=== PATIENT | female | born 1950 | race Caucasian/White ===

== ENCOUNTER → 2023-12-11 10:26 | Outpatient (REF) | payer MEDICARE, SELFPAY | LOC: PAVMRI 10:26 | PROVIDERS: ATTENDING PHYSICIAN Ophthalmology; FAMILY PHYSICIAN Family Medicine | DX: H47.20 Unspecified optic atrophy (principal) | CPT/HCPCS: 70360; 70543; 71046; A9575 ==

== ENCOUNTER 2023-12-21 18:46 | Inpatient (IN) | payer MEDICARE, SELFPAY ==
[2023-12-21] VITALS (9 sets, daily range): BP systolic 118–142; BP diastolic 51–84; BMI 33.4
[2023-12-21 16:21] LABS: % Basophils 0.4 % (0-2); % Eosinophils 0.9 % (0-6); % Immature Granulocytes 0.9 % (0-0.5); % Lymphocytes 21.3 % (20.5-51.1); % Monocytes 4.4 % (1.7-9.3); % Neutrophils 72.1 % (42.2-75.2); Absolute Eosinophils 0.1 10^3/uL (0-0.7); Absolute Immature Granulocytes 0.1 10^3/uL (0-0.05); Absolute Lymphocytes 2.3 10^3/uL (1.2-3.4); Absolute Monocytes 0.5 10^3/uL (0.1-0.6); Absolute Neutrophils 7.8 10^3/uL (1.4-6.5); Hematocrit 46.4 % (37.0-47.0); Hemoglobin 15.7 g/dL (12.0-16.0); Mean Corp Hgb Conc. 33.8 g/dL (33.0-37.0); Mean Corpuscular Hgb 29.6 pg (27.0-31.0); Mean Corpuscular Volume 87.5 fL (81.0-99.0); Mean Platelet Volume 9.1 fL (7.4-10.4); Nucleated Red Blood Cells % 0 %; Platelet Count 393 10^3/uL (130-400); Red Cell Dist. Width 14.4 % (11.5-14.5); White Blood Cell Count 10.8 10^3/uL (4.8-10.8)
[2023-12-21 16:41] LABS: Blood Urea Nitrogen 19 mg/dl (7-17); Calcium 9.1 mg/dl (8.4-10.2); Carbon Dioxide 20 mmol/L (22-30); Chloride 108 mmol/L (98-107); Creatine Phosphokinase 92 U/L (30-135); Glucose 110 mg/dl (70-99); Sodium 139 mmol/L (135-145); eGFR > 60.00
--- NOTE | 2023-12-21 17:11 | ED.MUSCINJ ---
HPI-Injury
General
Chief Complaint: Fall
Source: patient
Exam Limitations: none
Time Seen by Provider: 12/21/23 16:07
Travel History
Have you had any contact with someone who has COVID-19?: No
Do you have any symptoms of coronavirus? Fever > 100 degrees, chills, cough, shortness of breath, sore throat, loss of taste or smell, muscle aches, or headache?: No
History of Present Illness-Injury
Initial Injury comments:
73 year old female presents complaining of left hip pain starting this morning after a fall. She admits to drinking too much wine last evening and fell this morning. She is on Eliquis, last dose was yesterday morning. She is not sure if she hit
her head. She has no other complaints at this time
Past History
Past History
ED Past Medical History: Arrthythmia (A fib), GERD and HTN
ED Past Surgical History: Cardiac (2 ablations)
Phy Exam
Physical Exam
Physical Exam:
General: Well-appearing female no acute respiratory distress
HEENT: Normocephalic small contusion noted to the left superior eyelid
Heart: Regular rate and rhythm no murmurs
Lungs: Clear to auscultation
Musculoskeletal exam: Left leg slightly externally rotated and shortened tender about the left proximal thigh spine is nontender
Injury Course
Orders/Labs/Results
Orders:
Orders
12/21/23 16:15
Add On- LAB Urgent
Tests Added?: cpk
Alcohol Urgent
Basic Metabolic Panel Urgent
Complete Blood Count/With Diff Urgent
Creatine Phosphokinase Urgent
CR Femur - Left Min 2 Vw Urgent
Comment:
Reason For Exam: fall
CR Pelvis - 1 Or 2 Views Urgent
Comment:
Reason For Exam: fall
12/21/23 16:16
CT Head W/o Iv Contrast Urgent
Comment:
Reason For Exam: fall
12/21/23 16:54
Add On- LAB Urgent
Tests Added?: alcohol
Abnormal Lab Results
12/21/23
16:15
Abs Immat Gran (auto) 0.1 H 10^3/uL
(0-0.05)
Absolute Neuts (auto) 7.8 H 10^3/uL
(1.4-6.5)
Immature Gran % 0.9 H %
(0-0.5)
Chloride 108 H mmol/L
(98-107)
Carbon Dioxide 20 L mmol/L
(22-30)
BUN 19 H mg/dl
(7-17)
Creatinine 0.5 L mg/dL
(0.6-1.0)
Glucose 110 H mg/dl
(70-99)
12/21/23 16:15
12/21/23 16:15
MDM/Problems Addressed
Differential Diagnosis Includes:
Fall after wine. Probable intoxication. Will obtain CT of head x-rays of left femur and pelvis. Labs pending
*Critical Care Note
Total Time (30-74mins, 75-104mins- exclusive of procedures): Not Applicable
ED Attending Note
-
Portions of this chart may have been created with voice recognition software.� Occasional wrong word or��sound alike� substitutions may have occurred due to the inherent limitations of voice recognition software.
Discharge Plan
Departure
Patient Disposition: Admit
Date of Disposition: 12/21/23
Time of Disposition: 17:16
Admit to: Med/Surg
Presentation/result/management discussed w/ accepting MD/DO: Hospitalist
Discharge Problem:
Closed fracture of left hip
Prescriptions:
No Action
atorvastatin 10 mg Tablet
10 mg PO QPM
lamotrigine [Lamictal] 25 mg Tablet
50 mg PO BID
lorazepam 2 mg Tablet
2 mg PO BIDPRN PRN (Reason: anxiety)
oxybutynin chloride 5 mg Tablet
5 mg PO BID
losartan 100 mg Tablet
100 mg PO DAILY
aripiprazole 5 mg Tablet
5 mg PO DAILY
duloxetine 60 mg Capsule,Delayed Release(Dr/Ec)
120 mg PO DAILY
acetaminophen [Tylenol] 325 mg Tablet
650 mg PO Q4H PRN (Reason: mild pain or headache)
therapeutic multivitamin Tablet
1 tab PO DAILY
cyanocobalamin (vitamin B-12) [Vitamin B-12] 500 mcg Tablet
500 mcg PO DAILY
ascorbic acid (vitamin C) [Vitamin C] 500 mg Tablet
500 mg PO DAILY
buspirone 30 mg Tablet
30 mg PO BID
aspirin 81 mg Tablet,Chewable
81 mg PO DAILY
vitamin B complex Tablet
1 tab PO DAILY
colestipol 1 gram tablet
4 g PO DAILY
omeprazole 40 mg Capsule,Delayed Release(Dr/Ec)
40 mg PO DAILY
thiamine HCl (vitamin B1) 100 mg Tablet
100 mg PO BID Qty: 60 0RF
amlodipine [Norvasc] 10 mg tablet
10 mg PO DAILY Qty: 30 0RF
folic acid 1 mg tablet
1 mg PO DAILY Qty: 30 0RF
Referrals:
Alka Castro DO [Family Provider] -
Interventions
Interventions:
*Risk Screen - Suicide Last Done: 12/21/23 15:50
*General Assessment Last Done: 12/21/23 15:50
*Neglect/Abuse Screening Last Done: 12/21/23 15:50
*ED COVID-19 Vaccine History Last Done: 12/21/23 15:49
ED-Musculoskeletal Assessment Last Done: 12/21/23 15:52
ED- Neurological Assessment Last Done: 12/21/23 15:52
ED-Skin Assessment Last Done: 12/21/23 15:52
[2023-12-21 17:16] LABS: Alcohol 298 mg/dl
--- NOTE | 2023-12-21 17:18 | HPS.HSE ---
Addendum entered and electronically signed by Sreekanth Doss MD 12/21/23 18:22:
I saw and examined the patient.
The SENIOR LANDSCAPE ARCHITECT or PA's note was reviewed and I agree with the note.
Comment: History as outlined and discussed with SENIOR LANDSCAPE ARCHITECT
Patient on exam still has some alcohol on her breath and still seems a little any braided with some slurring of her speech does not recall much events yesterday when she may have been on the floor for some time and now has incurred a
intertrochanteric fracture of her left femur with some comminution. From pain and inability to weight-bear. Her medical history more recently exhibits paroxysmal atrial fibrillation for which she had cardioversion some weeks ago and seem to be an
successful as the patient presently in sinus rhythm she remains on metoprolol 50 mg twice a day and was started on Eliquis at that time she suffers long-term from a prior history of traumatic brain injury with more recently noting diminishing acuity
in her right eye and felt to be in relation to ongoing encephalomalacia from her traumatic brain injury was noted on more recent MRI and end of November of this year.
On her exam pertinent findings showed some bruising to the left eyelid but no significant signs of fluctuance or pain to the orbit and no significant acuity change. CT of the head was unremarkable with the exception of noting prior encephalomalacia
MRI did show atrophy above and beyond what would be expected in a 73-year-old.
Review of chemistries notes a bicarb of 21/with a gap of 14/CK was not elevated at 92/minor elevation in LFTs possibly alcohol intake related.
She is on multiple medications that could have aggravated her situation as far as her inebriation including lorazepam buspirone Abilify lamotrigine and Cymbalta/she admits to alcohol excess at times in her history but admits this was a isolated
episode in relation to the democrat that she had night and Saturday.
Comminuted intertrochanteric left hip fracture
-Will require surgical intervention but will also require washout for apixaban which she last took Saturday morning/period of 3 days earliest of the surgical intervention would be Saturday
-Nonetheless follow a alcohol withdrawal protocol
-Resume medication profile make sure she received a dosage of metoprolol on operative date
-Withhold further apixaban
-Analgesia with Dilaudid
-Resume duloxetine, lamotrigine, Abilify, but probably hold her prior dosing of lorazepam unless has significant withdrawal symptoms/but was on also fairly high dosages of 2 mg twice daily taking as as needed
-Based on Sapp perioperative risk profile 0.34% estimated risk probability of [place] or cardiac arrest /after washout of apixaban
Essential hypertension
-Continue losartan and metoprolol
Paroxysmal atrial fibrillation/status post cardioversion and presents in sinus rhythm
-Continue beta-blockade perioperatively
-Will hold apixaban
Rest of comorbidities as outlined by SENIOR LANDSCAPE ARCHITECT and agreed and discussed/DNR/DNI
Original Note:
Family Physician
-
Family Physician: Alka Castro
Chief Complaint
-
fall
History of Present Illness
73 year old female with past medical history for traumatic brain injury, paroxysmal A-fib, hide GERD, hypertension, diverticulitis, presented to us with left hip pain. Patient is from [facility]. They had a democrat on night at the
[employer]. She took leftover wine to her apartment. she drank one and half bottle wine overnight. patient does not remember how and when she fell. she thinks, she fell sometime yesterday. today the [facility]elia saw her through her glass sliding door and
helped her. presents complaining of left hip pain. She is on Eliquis, last dose was yesterday morning.� She is not sure if she hit her head. Patient denied headache, dizziness, syncopal episode. Patient denied fever, chills, chest pain, short of
breath. Patient denied abdominal pain, nausea, vomiting, diarrhea. Patient denied dysuria hematuria.
stated she has not been drinking for long time. her last drink was few months ago.
X-ray with left hip fracture. Admitting for further management
Medical History
Past Medical History
Past Medical History: Reports Other
Additional Past Medical History:
atrial fib
htn
HLD
depression, anxiety
migraine
Diverticulosis/diverticulitis
Obstructive sleep apnea
Past Surgical History: Reports Other
Additional Past Surgical History:
cardiac ablation
Appendectomy
Bowel resection
Bilateral knee replacement
Right shoulder surgery
Social History
Tobacco: Former Smoker
Alcohol: Occasional
Drug: None
Personal: Single
Living: Alone
Family History
Family History: Not pertinent
Allergies / Home Medications
Allergies reflects when Allergies were last updated in [facility].
Home Medications with original date entered in [facility]
Allergy/Medication List:
Allergies
Allergy/AdvReac Type Severity Reaction Status Date / Time
etomidate Allergy Unknown Verified 05/04/23 12:39
topiramate [From Topamax] Allergy Unknown Verified 05/04/23 12:39
Home Medications
aripiprazole 5 mg tablet 5 mg PO DAILY Neurological Condition 05/07/22
atorvastatin 10 mg tablet 10 mg PO QPM High cholesterol 05/07/22
duloxetine 60 mg capsule,delayed release 120 mg PO DAILY Mental Health 05/07/22
lamotrigine 25 mg tablet (Lamictal) 50 mg PO BID Neurological Condition 05/07/22
lorazepam 2 mg tablet 2 mg PO BIDPRN PRN anxiety 05/07/22
losartan 100 mg tablet 100 mg PO DAILY Blood pressure 05/07/22
oxybutynin chloride 5 mg tablet 5 mg PO BID Urinary issue 05/07/22
acetaminophen 325 mg tablet (Tylenol) 650 mg PO Q4H PRN mild pain or headache 08/31/22
ascorbic acid (vitamin C) 500 mg tablet (Vitamin C) 500 mg PO DAILY Supplement 08/31/22
aspirin 81 mg chewable tablet 81 mg PO DAILY Blood clot prevention/tx 08/31/22
buspirone 30 mg tablet 30 mg PO BID Mental Health 08/31/22
colestipol 1 gram tablet 4 g PO DAILY Gastrointestinal issue 08/31/22
cyanocobalamin (vitamin B-12) 500 mcg tablet (Vitamin B-12) 500 mcg PO DAILY Supplement 08/31/22
therapeutic multivitamin 1 tab PO DAILY Supplement 08/31/22
vitamin B complex 1 tab PO DAILY Supplement 08/31/22
omeprazole 40 mg capsule,delayed release 40 mg PO DAILY Gastrointestinal Issue 05/04/23
amlodipine 10 mg tablet (Norvasc) 10 mg PO DAILY #30 tabs 05/06/23
folic acid 1 mg tablet 1 mg PO DAILY #30 tabs 05/06/23
thiamine HCl (vitamin B1) 100 mg tablet 100 mg PO BID #60 tabs 05/06/23
Review of Systems
-
Constitutional: Reports No Symptoms
EENT: Reports No Symptoms
Respiratory: Reports No Symptoms
Cardiac: Reports No Symptoms
Abdomen/GI: Reports No Symptoms
: Reports No Symptoms
Musculoskeletal: Reports Other (left hip pain)
Skin: Reports No Symptoms
Neurological: Reports No Symptoms
Endocrine: Reports No Symptoms
Hematologic/Lymphatic: Reports No Symptoms
Psych: Reports No Symptoms
Physical Exam
Vital Signs
Vital Signs
Temp Pulse Resp BP Pulse Ox
97.5 F 59 16 123/62 95
12/21/23 15:47 12/21/23 15:47 12/21/23 15:47 12/21/23 15:47 12/21/23 15:47
Physical Exam
General: Well Developed, Well Nourished and No Apparent Distress
HEENT: NormoCephalic, Moist mucous membranes and Atraumatic
Respiratory: Clear
Cardiac: S1/S2 and Regular Rhythm; No Murmur or Rub
GI: Soft, Non Tender, Non Distended and Normal Bowel Sounds; No Organomegaly
Rectal: Deferred by Provider
Musculoskeletal: No Clubbing, No Cyanosis and Other ( Left leg slightly externally rotated and shortened tender about the left proximal thigh spine is nontender)
Skin: No Rash
Neuro: AO x 3 and Nonfocal/grossly intact
Psych: Calm
Laboratory Results
-
12/21/23 16:15
12/21/23 16:15
Laboratory Results
Total Bilirubin Cancelled 12/21/23 16:15
AST Cancelled 12/21/23 16:15
ALT Cancelled 12/21/23 16:15
Alkaline Phosphatase Cancelled 12/21/23 16:15
Data Reviewed
-
Diagnostic Radiology: Report Reviewed by me
Lab Data: Labs Reviewed by me
Impression/Plan
-
#fell/left intertrochanteric hip fracture
-head CT with no acute findings
-pelvis/femur x ray There is a comminuted left proximal femoral intertrochanteric fracture with foreshortening and varus angulation. The femoral head remains situated within the acetabulum. No periacetabular iliac fracture.
-orthopedics consulted
-Dilaudid prn for pain
-PT/OT after surgical intervention
#Essential hypertension
Continue losartan
#Depression
-continue Abilify/duloxetine/buspirone, on Lamictal for migraines
#Paroxysmal Afib
-EKG pending
-eliquis hold
-Metoprolol continued
#h/o GIN, s/p stimulator device, oxygen HS PRN
# Hyperlipidemia
-Statin
# GERD
-Prilosec continued
#hxt of TBI
# SCD
# DNR
[2023-12-21 17:42] LABS: INR 1.01; PT 13.1 Sec (11.4-14.6)
[2023-12-21 17:46] LABS: ALT (SGPT) 47 U/L (0-35); AST (SGOT) 39 U/L (14-36); Albumin 4.9 g/dl (3.5-5.0); Alkaline Phosphatase 144 U/L (38-126); Blood Urea Nitrogen 20 mg/dl (7-17); Calcium 9.4 mg/dl (8.4-10.2); Carbon Dioxide 21 mmol/L (22-30); Chloride 106 mmol/L (98-107); Glucose 119 mg/dl (70-99); Potassium 5.3 mmol/L (3.5-5.1); Sodium 141 mmol/L (135-145); Total Bilirubin 0.3 mg/dl (0.2-1.3); Total Protein 7.5 g/dl (6.3-8.2); eGFR > 60.00
[2023-12-21] MEDS: DILAUDID 0.25 MG IV ×2 (18:10→21:16)
[2023-12-21] MEDS: LAMICTAL 50 MG PO (20:00)
[2023-12-21] MEDS: LIPITOR 10 MG PO (20:00)
[2023-12-21] MEDS: TOPROL XL 50 MG PO (20:04)
[2023-12-21] MEDS: DITROPAN 5 MG PO (20:04)
[2023-12-21] MEDS: SENOKOT 17.1999999999999993 MG PO (20:04)
[2023-12-21] MEDS: TYLENOL 650 MG PO (20:04)
[2023-12-21] MEDS: BUSPAR 30 MG PO (20:04)
[2023-12-21] MEDS: COLACE 100 MG PO (20:04)
[2023-12-21] MEDS: THIAMINE INJECTION 200 MG IV (20:05)
[2023-12-21 20:09] LABS: GGTP 217 U/L (12-43); Phosphorus 4.8 mg/dl (2.5-4.5)
[2023-12-21 20:16] LABS: B-Hydroxybutyrate 0.24 mmol/L (0.02-0.27)
--- NOTE | 2023-12-21 21:00 | PTCARENOTE ---
Received pt from ED. Patient in 8 pain in left hip. VSS. AAOx3, answered all admission questions appropriately. +1 ankle edema. R eye bruise. See assessment. Patient is incontinent of bowel and bladder. Patient is resting comfortably in bed with
call batista within reach.
[2023-12-22] VITALS (7 sets, daily range): BP systolic 128–167; BP diastolic 57–84; BMI 33.4
[2023-12-22] MEDS: TYLENOL 650 MG PO ×6 (00:16→23:53)
[2023-12-22] MEDS: DILAUDID 0.25 MG IV ×5 (01:18→20:18)
[2023-12-22 05:43] LABS: Urine Albumin Negative (Neg - Trace); Urine Bilirubin Negative (Negative); Urine Character Clear (Clear); Urine Color Yellow; Urine Glucose Negative (Negative); Urine Ketone Negative (Negative); Urine Leukocyte Negative (Negative); Urine Nitrite Positive (Negative); Urine Occult Blood Negative (Negative); Urine Specific Gravity 1.015 (<1.030); Urine Urobilinogen Negative (Neg - 1+)
[2023-12-22 06:06] LABS: Urine Bacteria Moderate (Negative); Urine Red Blood Cell None Seen /HPF (0-2); Urine White Cell 0-2 /HPF (0-5)
[2023-12-22 06:16] LABS: Amphetamines Negative (Negative); Barbiturates Negative (Negative); Benzodiazepines Positive (Negative); Buprenorphine Negative (Negative); Cocaine Negative (Negative); Marijuana Negative (Negative); Methadone Negative (Negative); Methamphetamines Negative (Negative); Opiates Negative (Negative); Phencyclidine Negative (Negative); Tricyclic Antidepressants Negative (Negative)
[2023-12-22 06:28] LABS: Fentanyl, Urine Negative (Negative)
--- NOTE | 2023-12-22 07:02 | W.PN.HOSP.TC ---
Today's Communication/Plan
-
Continue apixaban washout once undertaken earliest or intervention would be December 22
No medical contraindication for ORIF
Defer to orthopedics on when to resume anticoagulation postop
Do not see significant risk for alcohol withdrawal in the setting
Assessment / Plan
Assessment / Plan
Patient on exam still has some alcohol on her breath and still seems a little any inebriated with some slurring of her speech does not recall much events yesterday when she may have been on the floor for some time and now has incurred a
intertrochanteric fracture of her left femur with some comminution.� From pain and inability to weight-bear.� Her medical history more recently exhibits paroxysmal atrial fibrillation for which she had cardioversion some weeks ago and seem to be an
successful as the patient presently in sinus rhythm she remains on metoprolol 50 mg twice a day and was started on Eliquis at that time she suffers long-term from a prior history of traumatic brain injury with more recently noting diminishing acuity
in her right eye and felt to be in relation to ongoing encephalomalacia from her traumatic brain injury was noted on more recent MRI and end of November of this year.
On her exam pertinent findings showed some bruising to the left eyelid but no significant signs of fluctuance or pain to the orbit and no significant acuity change.� CT of the head was unremarkable with the exception of noting prior encephalomalacia
MRI did show atrophy above and beyond what would be expected in a 73-year-old.
Review of chemistries notes a bicarb of 21/with a gap of 14/CK was not elevated at 92/minor elevation in LFTs possibly alcohol intake related.
She is on multiple medications that could have aggravated her situation as far as her inebriation including lorazepam buspirone Abilify lamotrigine and Cymbalta/she admits to alcohol excess at times in her history but admits this was a isolated
episode in relation to the republican that she had night and Saturday.�
Past Medical History
Past Medical History: Reports Other
Additional Past Medical History:
atrial fib
htn
HLD
depression, anxiety
migraine
Diverticulosis/diverticulitis
Obstructive sleep apnea
Past Surgical History: Reports Other
Additional Past Surgical History:
cardiac ablation
Appendectomy
Bowel resection
Bilateral knee replacement
Right shoulder surgery
Comminuted intertrochanteric left hip fracture
-Will require surgical intervention but will also require washout for apixaban which she last took Saturday morning/period of 3 days earliest of the surgical intervention would be Saturday
-Nonetheless follow a alcohol withdrawal protocol
-Resume medication profile make sure she received a dosage of metoprolol on operative date
-Withhold further apixaban
-Analgesia with Dilaudid
-Resume duloxetine, lamotrigine, Abilify, but probably hold her prior dosing of lorazepam unless has significant withdrawal symptoms/but was on also fairly high dosages of 2 mg twice daily taking as as needed
-Based on Sapp perioperative risk profile 0.34% estimated risk probability of [place] or cardiac arrest /no medical contraindication after washout of apixaban
Essential hypertension
-Continue losartan and metoprolol
Paroxysmal atrial fibrillation/status post cardioversion and presents in sinus rhythm
-Continue beta-blockade perioperatively
-Will hold apixaban
Chronic diarrhea
-Seen multiple GI consultants without definitive diagnosis other than irritable bowel syndrome
-Fecal management system applied
h/o GIN, s/p stimulator device, oxygen HS PRN
# Hyperlipidemia
-Statin
# GERD
-Prilosec continued
#hxt of TBI
# SCD
# DNR
Anticipated Discharge: 24 - 48 hours
Subjective/Interval History
-
Date of Service: December 22, 2023
Some minimal relief with the usage of Dilaudid anytime she moves in bed does have 7-8 out of 10 pain no obvious alcohol withdrawal there is some anxiety over pending surgery. He suffers from chronic diarrhea and a fecal management system was
started.
Objective Data
-
Labs:
Laboratory Results
12/22/23
06:32
Sodium Pending
Potassium Pending
Chloride Pending
Carbon Dioxide Pending
BUN Pending
Creatinine Pending
Glucose Pending
Calcium Pending
Vital Signs:
Vital Signs
Temp Pulse Resp BP Pulse Ox
99.1 F 70 17 142/84 99
12/22/23 05:01 12/22/23 05:01 12/22/23 05:01 12/22/23 05:01 12/22/23 05:01
I&O
12/21/23 12/22/23 12/23/23
05:59 06:59 06:59
Output Total
Balance
Review of Systems
-
History Source: Patient
Constitutional: Reports Weakness
EENT: Reports No Symptoms Reported
Respiratory: Reports No Symptoms
Cardiac: Reports No Symptoms
Abdomen/GI: Reports Diarrhea (Chronic)
Musculoskeletal: Reports Joint Pain, Joint Swelling and Edema
Physical Exam
-
General: No Apparent Distress
HEENT: Normocephalic
Respiratory: Clear to Auscultation
Cardiac: Regular Rhythm and S1/S2
GI: Soft, Nontender and Nondistended
Musculoskeletal: Edema, Left Lower Extrem (Shortened externally rotated pain referred to groin and left hip)
Neuro: Awake, Alert and Oriented
Data Reviewed
-
Total Time Spent with Patient (in minutes): 56
Diagnostic Radiology: Report Reviewed by me
Medical Tests (Nuc Med, Echo etc): Report Reviewed by me
Labs: Labs Reviewed by me (Initial chemistry showed a potassium of 5.3 and a bicarb 21/awaiting pending repeat labs this morning)
--- NOTE | 2023-12-22 07:44 | PTCARENOTE ---
Patient having multiple episodes of liquid diarrhea requiring multiple bed changes. Cdiff sample sent to lab. Notified CORPORATE REAL ESTATE MANAGER. Ordered rectal trumpet. Rectal trumpet inserted at 0600.
Patient also retaining urine. Bladder scan showed 760ml urine in bladder. Straight cath patient around 0515 for 790ml. Urine sample sent to lab. Patient is resting comfortably in bed with the call batista within reach.
--- NOTE | 2023-12-22 07:54 | W.PN.UPDATE ---
Update Note
Progress Note Update
Ms. Redd was seen on AM rounds. Full consult note to follow.
Unfortunately, Ms. Redd sustained a left intertrochanteric femur fracture. We recommend proceeding with surgical intervention with a cephalomedullary nail. The risks, benefits, alternatives, recovery process and potential complications were
discussed and all questions answered. Ms. Redd would like to proceed with surgical intervention of her fracture. Surgical and blood consents are signed and placed on the patient's chart. We will plan to proceed with OR tomorrow under the direction
of Dr. Braswell after Eliquis washout.
--NPO after midnight for OR 12/23/23.
--NWB to LLE.
--Continue current pain management regimen. Ice and elevation for edema control.
--T+S ordered.
--Antibiotics ordered to OR.
[2023-12-22 08:00] LABS: Blood Urea Nitrogen 20 mg/dl (7-17); Calcium 9.2 mg/dl (8.4-10.2); Carbon Dioxide 21 mmol/L (22-30); Chloride 105 mmol/L (98-107); Estimated Creatinine Clearance 94 ml/min; Glucose 122 mg/dl (70-99); Potassium 4.5 mmol/L (3.5-5.1); Sodium 134 mmol/L (135-145); eGFR > 60.00
[2023-12-22] MEDS: LAMICTAL 50 MG PO ×2 (09:34→20:16)
[2023-12-22] MEDS: COZAAR 100 MG PO (09:35)
[2023-12-22] MEDS: TOPROL XL 50 MG PO ×2 (09:35→20:16)
[2023-12-22] MEDS: ABILIFY 5 MG PO (09:35)
[2023-12-22] MEDS: THERAGRAN 1 TABLET PO (09:35)
[2023-12-22] MEDS: DITROPAN 5 MG PO ×2 (09:35→20:17)
[2023-12-22] MEDS: PROTONIX 40 MG PO (09:35)
[2023-12-22] MEDS: CYMBALTA DELAYED RELEASE 120 MG PO (09:36)
[2023-12-22] MEDS: THIAMINE INJECTION 200 MG IV ×2 (09:36→20:17)
[2023-12-22] MEDS: FOLVITE 1 MG PO (09:36)
[2023-12-22] MEDS: BUSPAR 30 MG PO ×2 (09:36→20:17)
[2023-12-22] MEDS: COLACE PO ×2 (09:37→20:22)
[2023-12-22] MEDS: SENOKOT PO ×2 (09:37→20:22)
--- NOTE | 2023-12-22 11:38 | PTCARENOTE ---
bladder scanned per algorithm d/t no void since straight catheterization earlier this AM on previous shift, [id number]. Per algorithm, encouraged PO intake, will reassess bladder scan in 2 hours.
[2023-12-22] MEDS: TYLENOL PO (11:43)
--- NOTE | 2023-12-22 13:40 | CM ---
CM following re: discharge planning.
Reviewed pt's chart, met with pt.
Pt is a 73 year old female, admitted with primary dx of Hip fx. pt stated she drank 1.5 bottles of wine yesterday, fell and brought her hip. Pt stated she will need to go to a SNF at this point. pt was not interested to discuss options of SNFs
today.
Pt is well known to this CM from previous admissions, lives alone in [facility] [address] [facility], has 2 supportive sons. Pt reports she was sober for some times and relapsed yesterday. Emotional support and reassurance offered and provided.
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 Pt reports she has been drinking for years, her and was taking care of her 2 sons. Pt
asked not to talk to her sons regarding her drinking, pt stated she feels so embarrassed. Per pt her house is 'messy', son hired people to clean her house every Saturday. Pt stated she used to go to '[facility]' and she would like to
resume her participation.
Pt declined [facility] referral and pt stated she will need to go to a SNF for physical recovery.
PCP: Alka Julian.
Pharmacy: [facility]
D/C plan: Preferred SNF. Pt preferred to discuss SNF options tomorrow.
CM will follow with discharge plan updates as hospitalization progresses
--- NOTE | 2023-12-22 16:15 | CON.ORTHO ---
Consultation - Orthopedics
History
Patient is a 73-year-old female who presented to the hospital status post fall. She admits to drinking too much wine and subsequently suffering a fall, resulting in a left hip fracture. An orthopedic surgery consultation was subsequently rendered.
She does have a history of A-fib and is on Eliquis. She has also had 2 prior cardiac ablations. She currently reports pain at the left hip. Denies any pain at the knee or ankle. Denies any numbness or tingling in her left lower extremity. She
does have a history of 2 left total hip arthroplasties in 1999 and 2003 in [place].
Allergies / Home Medications
Allergy/AdvReac Type Severity Reaction Status Date / Time
etomidate Allergy Unknown Verified 05/04/23 12:39
topiramate [From Topamax] Allergy Unknown Verified 05/04/23 12:39
Medication Instructions Recorded
aripiprazole 5 mg tablet 5 mg PO DAILY Neurological 05/07/22
Condition
atorvastatin 10 mg tablet 10 mg PO QPM High cholesterol 05/07/22
duloxetine 60 mg capsule,delayed 120 mg PO DAILY Mental Health 05/07/22
release
lamotrigine 25 mg tablet (Lamictal) 50 mg PO BID Neurological Condition 05/07/22
lorazepam 2 mg tablet 2 mg PO BIDPRN PRN anxiety 05/07/22
losartan 100 mg tablet 100 mg PO DAILY Blood pressure 05/07/22
oxybutynin chloride 5 mg tablet 5 mg PO BID Urinary issue 05/07/22
ascorbic acid (vitamin C) 500 mg 500 mg PO DAILY Supplement 08/31/22
tablet (Vitamin C)
buspirone 30 mg tablet 30 mg PO BID Mental Health 08/31/22
therapeutic multivitamin 1 tab PO DAILY Supplement 08/31/22
vitamin B complex 1 tab PO DAILY Supplement 08/31/22
omeprazole 40 mg capsule,delayed 40 mg PO DAILY Gastrointestinal 05/04/23
release Issue
folic acid 1 mg tablet 1 mg PO DAILY #30 tabs 05/06/23
thiamine HCl (vitamin B1) 100 mg 100 mg PO BID #60 tabs 05/06/23
tablet
apixaban 5 mg tablet (Eliquis) 5 mg PO BID 12/21/23
metoprolol succinate 25 mg 50 mg PO BID 12/21/23
tablet,extended release 24 hr
Vital Signs / Lab Results
Temp Pulse Resp BP Pulse Ox
98.1 F 74 16 128/74 97
12/22/23 15:40 12/22/23 15:40 12/22/23 15:40 12/22/23 15:40 12/22/23 15:40
12/21/23 16:15
12/22/23 07:06
Review of systems: Negative otherwise as indicated in H&P
General: Awake, alert, oriented x3; no acute distress
Head: Normocephalic, atraumatic
Eyes: Conjunctiva normal, sclera anicteric
Throat: Airway intact, handling secretions
Neck: Trachea midline, supple
Lungs: Breathing comfortably no distress
Heart: Regular rate
GI: Soft, Non Tender, Non Distended
MSK: Pain elicited upon palpation of left groin. Range of motion left hip and knee limited due to pain at the left hip. No pain on palpation of the left knee. Painless range of motion present of the left ankle. Skin intact with no lacerations or
breakage. Dorsalis pedis pulse 2+.
Imaging:
X-rays of the left hip and femur demonstrate a displaced intertrochanteric femoral neck fracture. A total knee replacement with a stemmed femoral prosthesis is present.
Assessment / Plan
Assessment:
Left hip intertrochanteric fracture
Plan:
Per IM, patient will not be medically cleared till Saturday12/23/23 due to her eliquis
Plan for surgery on Saturday12/23/23.
Hold anticoagulation
Nonweightbearing left lower extremity
Pain control
DVT ppx- SCDs
Further recommendations after surgery.
[2023-12-22] MEDS: LIPITOR 10 MG PO (17:46)
[2023-12-22] MEDS: MELATONIN 3 MG PO (20:38)
[2023-12-23] VITALS (14 sets, daily range): BP systolic 98–126; BP diastolic 45–80
[2023-12-23] MEDS: DILAUDID 0.25 MG IV ×3 (00:31→09:01)
[2023-12-23] MEDS: TYLENOL 650 MG PO ×5 (03:36→23:52)
[2023-12-23] MEDS: ANCEF 10 IV (06:11)
[2023-12-23 06:43] LABS: Hematocrit 41.1 % (37.0-47.0); Hemoglobin 13.6 g/dL (12.0-16.0); Mean Corp Hgb Conc. 33.1 g/dL (33.0-37.0); Mean Corpuscular Hgb 29.6 pg (27.0-31.0); Mean Corpuscular Volume 89.5 fL (81.0-99.0); Mean Platelet Volume 9.4 fL (7.4-10.4); Platelet Count 292 10^3/uL (130-400); Red Blood Cell Count 4.59 10^6/uL (4.20-5.40); Red Cell Dist. Width 14.2 % (11.5-14.5); White Blood Cell Count 10.2 10^3/uL (4.8-10.8)
[2023-12-23 07:06] LABS: Blood Urea Nitrogen 22 mg/dl (7-17); Calcium 9.5 mg/dl (8.4-10.2); Carbon Dioxide 26 mmol/L (22-30); Chloride 98 mmol/L (98-107); Glucose 118 mg/dl (70-99); Potassium 4.3 mmol/L (3.5-5.1); Sodium 135 mmol/L (135-145)
[2023-12-23 07:16] LABS: Estimated Creatinine Clearance 81 ml/min; eGFR > 60.00
--- NOTE | 2023-12-23 07:59 | W.PN.UPDATE ---
Update Note
Progress Note Update
73F planned for OR today for left hip CMN w/ Dr. Braswell
NPO
ANCEF OCTOR
Hold anticoagulation
Nonweightbearing left lower extremity
Pain control
DVT ppx- SCDs
Further recommendations after surgery.
[2023-12-23] MEDS: COZAAR 100 MG PO (09:00)
[2023-12-23] MEDS: TOPROL XL 50 MG PO ×2 (09:00→20:54)
[2023-12-23] MEDS: DITROPAN 5 MG PO ×2 (09:00→20:56)
[2023-12-23] MEDS: LAMICTAL 50 MG PO ×2 (09:00→20:55)
[2023-12-23] MEDS: FOLVITE 1 MG PO (09:00)
[2023-12-23] MEDS: PROTONIX 40 MG PO (09:00)
[2023-12-23] MEDS: BUSPAR 30 MG PO ×2 (09:00→21:05)
[2023-12-23] MEDS: ABILIFY 5 MG PO (09:01)
[2023-12-23] MEDS: CYMBALTA DELAYED RELEASE 120 MG PO (09:01)
[2023-12-23] MEDS: THERAGRAN 1 TABLET PO (09:01)
[2023-12-23] MEDS: THIAMINE INJECTION 200 MG IV ×2 (09:01→21:06)
[2023-12-23] MEDS: SENOKOT PO (09:02)
[2023-12-23] MEDS: COLACE PO ×2 (09:02→20:57)
--- NOTE | 2023-12-23 10:51 | W.PN.HOSP.TC ---
Today's Communication/Plan
-
OR today
Assessment / Plan
Assessment / Plan
Patient on exam still has some alcohol on her breath and still seems a little any inebriated with some slurring of her speech does not recall much events yesterday when she may have been on the floor for some time and now has incurred a
intertrochanteric fracture of her left femur with some comminution.� From pain and inability to weight-bear.� Her medical history more recently exhibits paroxysmal atrial fibrillation for which she had cardioversion some weeks ago and seem to be an
successful as the patient presently in sinus rhythm she remains on metoprolol 50 mg twice a day and was started on Eliquis at that time she suffers long-term from a prior history of traumatic brain injury with more recently noting diminishing acuity
in her right eye and felt to be in relation to ongoing encephalomalacia from her traumatic brain injury was noted on more recent MRI and end of November of this year.
On her exam pertinent findings showed some bruising to the left eyelid but no significant signs of fluctuance or pain to the orbit and no significant acuity change.� CT of the head was unremarkable with the exception of noting prior encephalomalacia
MRI did show atrophy above and beyond what would be expected in a 73-year-old.
Review of chemistries notes a bicarb of 21/with a gap of 14/CK was not elevated at 92/minor elevation in LFTs possibly alcohol intake related.
She is on multiple medications that could have aggravated her situation as far as her inebriation including lorazepam buspirone Abilify lamotrigine and Cymbalta/she admits to alcohol excess at times in her history but admits this was a isolated
episode in relation to the democrat that she had night and Saturday.�
Assessment:
comminuted intertrochanteric left hip fracture
- OR planned today: left hip CMN
- Eliquis on hold
- continue Dilaudid prn
- 'Based on Sapp perioperative risk profile 0.34% estimated risk probability of [place] or cardiac arrest /no medical contraindication after washout of apixaban' per Dr. Doss
Essential hypertension
- continue losartan and metoprolol
Paroxysmal atrial fibrillation/status post cardioversion and presents in sinus rhythm
- continue metoprolol perioperatively
- Eliquis on hold
Chronic diarrhea
- seen multiple GI consultants without definitive diagnosis other than irritable bowel syndrome
- fecal management system applied
h/o GIN, s/p stimulator device, oxygen HS PRN
Hyperlipidemia
- statin
GERD
- PPI
hx of TBI
Depression and Anxiety
- Resume duloxetine, lamotrigine, Abilify, Buspirone
- hold Ativan on hold
DVT ppx: SCDs
Code: DNR
Anticipated Discharge: > 48 hours
Subjective/Interval History
-
Date of Service: December 23, 2023
pain not well controlled per patient
denies any other complaints currently
Objective Data
-
Labs:
Laboratory Results
12/23/23
06:00
WBC 10.2
Hgb 13.6
Hct 41.1
Plt Count 292 D
Sodium 135
Potassium 4.3
Chloride 98
Carbon Dioxide 26
BUN 22 H
Creatinine 0.7
Glucose 118 H
Calcium 9.5
Vital Signs:
Vital Signs
Temp Pulse Resp BP Pulse Ox
98.3 F 60 16 126/58 96
12/23/23 07:07 12/23/23 07:07 12/23/23 07:07 12/23/23 07:07 12/23/23 07:07
I&O
12/22/23 12/23/23 12/24/23
06:59 06:59 06:59
Intake Total 960 / 960
Output Total
Balance 960 / 960
Physical Exam
-
General: No Apparent Distress
HEENT: Normocephalic and Atraumatic
Respiratory: Negative Wheezes or Rales
Cardiac: Regular Rhythm and S1/S2
GI: Soft and Nontender
Musculoskeletal: Other (Shortened externally rotated pain referred to groin and left hip)
Neuro: AO x 3
Psych: Calm
Data Reviewed
-
Total Time Spent with Patient (in minutes): 45
Labs: Labs Reviewed by me
[2023-12-23] MEDS: DILAUDID 0.5 MG IV ×4 (11:09→23:52)
--- NOTE | 2023-12-23 11:10 | CM ---
Reviewed the chart notes. Patient expected to go to OR today for left hip fracture repair. Will need to have PT/OT evaluate after surgery for discharge planning purposes. CM continues to be available to patient/family and is monitoring medical
plan for needs at discharge.
Plan: Discharge plans will depend on the patient's progress.
[2023-12-23] MEDS: TYLENOL PO (15:50)
[2023-12-23] MEDS: LIPITOR PO (19:17)
--- NOTE | 2023-12-23 19:33 | OR.RPT ---
Operative Report
Operative Report
Orthopedic Surgery Operative Report
Date of Surgery: 12/23/23
PREOPERATIVE DIAGNOSES:
1. Left intertrochanteric femoral neck fracture
POSTOPERATIVE DIAGNOSES:
1. Left intertrochanteric femoral neck fracture
PROCEDURE PERFORMED:
1. Left hip intramedullary nailing
SURGEON: Kelli Braswell D.O.
HUMAN RESOURCES LEADER: None
ANESTHESIA: General
COMPLICATIONS: None
ESTIMATED BLOOD LOSS: 50 cc
DRAINS: None
SPECIMEN: None
IMPLANTS:
[employer]plants-
[id number] Left Gamma Nail
[id number] lag screw
5.0x32.5mm screw
INDICATION FOR SURGERY: Patient is a 73-year-old female who recently took a fall. Imaging in the hospital demonstrated a left intertrochanteric femoral neck fracture. All operative and nonoperative treatment options were discussed with the patient
and a decision was made to proceed with surgery once she was medically optimized. Patient does have a revision left total knee arthroplasty in place with a stemmed femoral component. Consideration was given to plating across the cephalomedullary
nail and the stem of the femoral component of the revision total knee arthroplasty. A discussion was had with other orthopedic colleagues and a decision was made against plating due to increased risk of infection of the total knee implant. The
risks, benefits, alternatives, and indications were discussed with the patient in detail. The risks include, but are not limited to bleeding requiring transfusion, infection, need for reoperation, nerve or blood vessel damage, anesthetic risks, need
for further surgery, femoral stress fractures, continued pain, blood clots in the legs, heart attack, stroke, , neurovascular injury, malunion, nonunion, continued pain, numbness, weakness. The patient understands the risks and elected to
proceed. Informed consent was obtained preoperatively.
PROCEDURE IN DETAIL: The patient was identified in the preoperative holding area. The surgical site was appropriately marked. The patient was then brought to the operating room. General anesthesia was achieved. The patient was then appropriately
positioned on the fracture table. The fracture was reduced by manipulating the limb on the fracture table under fluoroscopic guidance. The patient was given routine preoperative intravenous antibiotics. The patient was prepped and draped in the
usual sterile manner. A preoperative surgical time-out was taken and the procedure was initiated.
The greater trochanter was marked using fluoroscopy. An incision was made along the lateral hip proximal to the greater trochanter. A guidewire was then advanced under fluoroscopic guidance to gain an appropriate entry point at the greater
trochanter. Once the guidewire was placed, an opening reamer was used to gain entry into the femur. The guidewire was removed and a ball-tipped guidewire was inserted into the femur. The position of the guidewire was confirmed both with tactile
feel and with fluoroscopy. A measurement was taken for an appropriately sized nail under fluoroscopic guidance. The femur was then sequentially reamed. Next, a size [id number] nail was inserted into the femur under fluoroscopic guidance. The
ball-tipped guide wire was removed. Attention was then turned towards lag screw placement. The lag screw attachment was placed on the jig. An incision was made at the lateral thigh to advance the lag screw attachment to the lateral femur. The lag
screw guidewire was then introduced into the femoral neck under fluoroscopic guidance. Once appropriate position of the guidewire was confirmed, a measurement was taken. The femoral neck was then drilled over top the guidewire and the appropriately
sized lag screw was placed under fluoroscopic guidance. Traction was removed. Compression was performed through the lag screw. The set-screw of the nail was placed to lock the nail to the lag screw. The lag screw attachment and guide wire were
removed. Attention was then turned towards placement of the distal interlocking screw. A distal interlocking screw was placed via the jig. The jig was then removed and all wounds were copiously irrigated. Final x-rays were obtained. The wounds
were closed in layered fashion using vicryl suture. Che were applied at the skin. Dressings were applied to all incision sites. Patient tolerated the procedure well with no immediate complications. All counts were correct at the end of the
surgery.
Kelli Braswell D.O.
Orthopedic Surgery
--- NOTE | 2023-12-23 19:39 | W.PN.UPDATE ---
Update Note
Progress Note Update
Orthopedic surgery postoperative update note:
Patient is status post left hip intramedullary nailing. She was seen in the PACU. Moving her left ankle. Distally neurovascularly intact. She may weight-bear as tolerated at the left lower extremity with assistance. PT/OT. May resume Eliquis.
Diet okay.
[2023-12-23] MEDS: ATIVAN 1 MG IV (19:47)
[2023-12-23 20:34] LABS: Hepatitis C Antibody Negative (Negative)
--- NOTE | 2023-12-23 20:39 | PTCARENOTE ---
Received report from GATE TENDER, Ally. Pt returns to unit drowsy but awakens easily to verbal stimuli, AAOx3. C/o moderate pain 6/10 to LLE. Pt with 3 aquacell dressing to LLE/lateral thigh, dry and intact. SCD's in place. Pt tolerating 2L O2 at 97%.
Remainder of assessment as documented.
[2023-12-23] MEDS: SENOKOT 17.1999999999999993 MG PO (20:56)
--- NOTE | 2023-12-23 20:57 | W.PN.UPDATE ---
Update Note
Progress Note Update
Resumed previous diet as noted in orthopedics update note.
[2023-12-23] MEDS: FLOMAX 0.400000000000000022 MG PO (21:05)
[2023-12-24] VITALS (8 sets, daily range): BP systolic 89–121; BP diastolic 43–60; PULSE 65–72; O2SAT 94–97
[2023-12-24] MEDS: TYLENOL 650 MG PO ×5 (04:08→20:49)
[2023-12-24] MEDS: DILAUDID 0.5 MG IV ×5 (04:09→20:50)
[2023-12-24 06:05] LABS: Hematocrit 37.8 % (37.0-47.0); Hemoglobin 12.3 g/dL (12.0-16.0); Mean Corp Hgb Conc. 32.5 g/dL (33.0-37.0); Mean Corpuscular Hgb 30.1 pg (27.0-31.0); Mean Corpuscular Volume 92.4 fL (81.0-99.0); Mean Platelet Volume 9.7 fL (7.4-10.4); Platelet Count 271 10^3/uL (130-400); Red Blood Cell Count 4.09 10^6/uL (4.20-5.40); White Blood Cell Count 9.8 10^3/uL (4.8-10.8)
[2023-12-24 06:26] LABS: Blood Urea Nitrogen 26 mg/dl (7-17); Calcium 9.2 mg/dl (8.4-10.2); Carbon Dioxide 29 mmol/L (22-30); Chloride 98 mmol/L (98-107); Estimated Creatinine Clearance 71 ml/min; Glucose 137 mg/dl (70-99); Potassium 4.9 mmol/L (3.5-5.1); Sodium 136 mmol/L (135-145); eGFR > 60.00
--- NOTE | 2023-12-24 06:58 | W.PN.ORTHO ---
Today's Communication / Plan
-
PT/OT
Weightbearing as tolerated with walker
Eliquis for DVT prophylax
assisted facility once medically stable
Assessment
.
Distal Motor Intact: Yes
Dressing:
Clean, dry and intact.
Plan
.
Surgery / Date: L hip GN 12/22
DVT Prophylaxis: Aspirin
Activity:
Out of bed.
PT/OT
Discharge Plan: SNF
Subjective
.
.:
Patient resting comfortably.
Vital Signs and Labs
.
Vital Signs and Labs:
Lab Results
12/24/23 05:25
12/24/23 05:25
Temp Pulse Resp BP Pulse Ox
98.4 F 64 14 99/55 97
12/24/23 03:22 12/24/23 03:22 12/24/23 03:22 12/24/23 03:22 12/24/23 04:22
PT 13.1 Sec (11.4-14.6) 12/21/23 17:24
INR 1.01 12/21/23 17:24
[2023-12-24] MEDS: PROTONIX 40 MG PO (08:16)
[2023-12-24] MEDS: ABILIFY 5 MG PO (08:16)
[2023-12-24] MEDS: SENOKOT 17.1999999999999993 MG PO (08:16)
[2023-12-24] MEDS: THERAGRAN 1 TABLET PO (08:17)
[2023-12-24] MEDS: TOPROL XL 50 MG PO ×2 (08:17→19:43)
[2023-12-24] MEDS: ELIQUIS 5 MG PO ×2 (08:17→19:46)
[2023-12-24] MEDS: LAMICTAL 50 MG PO ×2 (08:17→19:45)
[2023-12-24] MEDS: COZAAR 100 MG PO (08:17)
[2023-12-24] MEDS: COLACE 100 MG PO (08:17)
[2023-12-24] MEDS: BUSPAR 30 MG PO ×2 (08:17→19:44)
[2023-12-24] MEDS: CYMBALTA DELAYED RELEASE 120 MG PO (08:17)
[2023-12-24] MEDS: FOLVITE 1 MG PO (08:17)
[2023-12-24] MEDS: DITROPAN 5 MG PO ×2 (08:17→19:46)
[2023-12-24] MEDS: THIAMINE INJECTION 200 MG IV (08:18)
--- NOTE | 2023-12-24 11:44 | W.PN.HOSP.TC ---
Today's Communication/Plan
-
pain control
IS
remove rectal tube
Assessment / Plan
Assessment / Plan
Patient on exam still has some alcohol on her breath and still seems a little any inebriated with some slurring of her speech does not recall much events yesterday when she may have been on the floor for some time and now has incurred a
intertrochanteric fracture of her left femur with some comminution.� From pain and inability to weight-bear.� Her medical history more recently exhibits paroxysmal atrial fibrillation for which she had cardioversion some weeks ago and seem to be an
successful as the patient presently in sinus rhythm she remains on metoprolol 50 mg twice a day and was started on Eliquis at that time she suffers long-term from a prior history of traumatic brain injury with more recently noting diminishing acuity
in her right eye and felt to be in relation to ongoing encephalomalacia from her traumatic brain injury was noted on more recent MRI and end of November of this year.
On her exam pertinent findings showed some bruising to the left eyelid but no significant signs of fluctuance or pain to the orbit and no significant acuity change.� CT of the head was unremarkable with the exception of noting prior encephalomalacia
MRI did show atrophy above and beyond what would be expected in a 73-year-old.
Review of chemistries notes a bicarb of 21/with a gap of 14/CK was not elevated at 92/minor elevation in LFTs possibly alcohol intake related.
She is on multiple medications that could have aggravated her situation as far as her inebriation including lorazepam buspirone Abilify lamotrigine and Cymbalta/she admits to alcohol excess at times in her history but admits this was a isolated
episode in relation to the constitution party that she had night and Saturday.�
Assessment:
comminuted intertrochanteric left hip fracture
- s/p left hip intramedullary nailing 12/22
- Eliquis resumed per Ortho
- continue pain control
Post-op hypoxic respiratory insufficiency, suspected atelectasis
- add IS
Essential hypertension
- continue losartan and metoprolol
Paroxysmal atrial fibrillation/status post cardioversion and presents in sinus rhythm
- continue metoprolol perioperatively
- Eliquis resumed
Chronic diarrhea
- seen multiple GI consultants without definitive diagnosis other than irritable bowel syndrome
- fecal management system applied initially, now with minimal output, will remove and follow
h/o GIN, s/p stimulator device, oxygen HS PRN
Hyperlipidemia
- statin
GERD
- PPI
hx of TBI
Depression and Anxiety
- continue duloxetine, lamotrigine, Abilify, Buspirone
- hold Ativan on hold
DVT ppx: SCDs
Code: DNR
Anticipated Discharge: 24 - 48 hours
Subjective/Interval History
-
Date of Service: December 24, 2023
reports post-op pain
denies SOB or CP
Objective Data
-
Labs:
Laboratory Results
12/24/23
05:25
WBC 9.8
Hgb 12.3
Hct 37.8
Plt Count 271
Sodium 136
Potassium 4.9
Chloride 98
Carbon Dioxide 29
BUN 26 H
Creatinine 0.8
Glucose 137 H
Calcium 9.2
Vital Signs:
Vital Signs
Temp Pulse Resp BP Pulse Ox
98.0 F 74 16 121/57 98
12/24/23 07:17 12/24/23 07:17 12/24/23 07:17 12/24/23 07:17 12/24/23 07:17
I&O
12/23/23 12/24/23 12/25/23
06:59 06:59 06:59
Intake Total 960 / 960 1779
Balance 960 / 960 1779
Physical Exam
-
General: No Apparent Distress
HEENT: Normocephalic and Atraumatic
Respiratory: Decreased Breath Sounds; Negative Wheezes or Rales
Cardiac: Regular Rhythm and S1/S2
GI: Soft
Genito-urinary: No Costovertebral Tender
Musculoskeletal: No Edema
Neuro: AO x 3
Hematologic / Lymphatic: No Lymphadenopathy
Psych: Calm
Data Reviewed
-
Total Time Spent with Patient (in minutes): 42
Labs: Labs Reviewed by me
--- NOTE | 2023-12-24 15:39 | CM ---
Reviewed the chart notes and spoke with the patient at the bedside. The patient is s/p hip fx repair. Discussed with the patient need for SNF. Patient in agreement with referrals being sent to area [facility]. CM continues to be available to
patient/family and is monitoring medical plan for needs at discharge.
Plan: Discharge to SNF once bed found and patient medically stable. No precert will be required.
[2023-12-24] MEDS: LIPITOR 10 MG PO (16:50)
[2023-12-24] MEDS: COLACE PO (19:44)
[2023-12-24] MEDS: SENOKOT PO (19:45)
[2023-12-24] MEDS: VITAMIN B1 100 MG PO (19:45)
[2023-12-24] MEDS: TYLENOL PO (23:46)
[2023-12-25] VITALS (8 sets, daily range): BP systolic 84–109; BP diastolic 44–72; PULSE 55–62; O2SAT 95
[2023-12-25] MEDS: TYLENOL 650 MG PO ×5 (00:23→19:41)
[2023-12-25] MEDS: DILAUDID 0.5 MG IV ×3 (00:59→09:13)
[2023-12-25] MEDS: TYLENOL PO (04:16)
[2023-12-25 05:03] LABS: Hematocrit 33.4 % (37.0-47.0); Hemoglobin 10.7 g/dL (12.0-16.0); Mean Corpuscular Hgb 29.8 pg (27.0-31.0); Mean Platelet Volume 9.7 fL (7.4-10.4); Platelet Count 233 10^3/uL (130-400); Red Blood Cell Count 3.59 10^6/uL (4.20-5.40); Red Cell Dist. Width 13.9 % (11.5-14.5); White Blood Cell Count 7.9 10^3/uL (4.8-10.8)
[2023-12-25 05:38] LABS: Blood Urea Nitrogen 40 mg/dl (7-17); Calcium 8.9 mg/dl (8.4-10.2); Carbon Dioxide 28 mmol/L (22-30); Estimated Creatinine Clearance 63 ml/min; Glucose 97 mg/dl (70-99); Potassium 4.5 mmol/L (3.5-5.1); Sodium 132 mmol/L (135-145); eGFR > 60.00
[2023-12-25 05:47] LABS: Chloride 100 mmol/L (98-107)
--- NOTE | 2023-12-25 07:51 | W.PN.UPDATE ---
Update Note
Progress Note Update
Ms. Redd is postop day 2 following her left hip gamma nail performed by Dr. Braswell (DOS 12/23/2023). She is resting comfortably in bed this morning. She does endorse aching pain about the hip, but does report her symptoms seem to be improving.
Of the left lower extremity reveals surgical dressings clean, dry and intact. Mild tenderness to palpation about the lateral aspect of the hip. Thigh is soft and compressible. Calf soft and nontender. Patient able to wiggle toes, plantar and
dorsiflex ankle. Neurovascular intact distally.
Hemoglobin this morning 10.7.
73-year-old female postop day 2 left hip gamma nail under the direction of Dr. Braswell
--Patient may be weightbearing as tolerated to left lower extremity with assistive device. We appreciate the assistance of PT/OT.
--Resume Eliquis.
--Continue current pain management regimen. Ice for pain and edema control.
-- Hemoglobin 10.7 this a.m. Continue to monitor.
--Aquacel dressing to remain in place until 7 to 10 days postop. Staple removal at 2 weeks postop.
-- Case management consult for discharge planning.
-- Please reach out any additional orthopedic questions or concerns.
[2023-12-25] MEDS: PROTONIX 40 MG PO (08:53)
[2023-12-25] MEDS: SENOKOT 17.1999999999999993 MG PO ×2 (08:53→19:56)
[2023-12-25] MEDS: BUSPAR 30 MG PO ×2 (08:53→19:41)
[2023-12-25] MEDS: ABILIFY 5 MG PO (08:53)
[2023-12-25] MEDS: CYMBALTA DELAYED RELEASE 120 MG PO (08:53)
[2023-12-25] MEDS: COLACE 100 MG PO ×2 (08:53→19:56)
[2023-12-25] MEDS: THERAGRAN 1 TABLET PO (08:54)
[2023-12-25] MEDS: TOPROL XL 50 MG PO (08:54)
[2023-12-25] MEDS: VITAMIN B1 100 MG PO ×2 (08:54→19:55)
[2023-12-25] MEDS: FOLVITE 1 MG PO (08:54)
[2023-12-25] MEDS: ELIQUIS 5 MG PO ×2 (08:55→19:55)
[2023-12-25] MEDS: DITROPAN 5 MG PO ×2 (08:55→19:56)
[2023-12-25] MEDS: COZAAR 100 MG PO (08:55)
[2023-12-25] MEDS: LAMICTAL 50 MG PO ×2 (08:55→19:41)
--- NOTE | 2023-12-25 09:09 | PTCARENOTE ---
Rectal tube removed 0900 by this RN per Doctor Fahad
--- NOTE | 2023-12-25 13:14 | W.PN.HOSP.TC ---
Today's Communication/Plan
-
await SNF placement
Assessment / Plan
Assessment / Plan
Patient on exam still has some alcohol on her breath and still seems a little any inebriated with some slurring of her speech does not recall much events yesterday when she may have been on the floor for some time and now has incurred a
intertrochanteric fracture of her left femur with some comminution.� From pain and inability to weight-bear.� Her medical history more recently exhibits paroxysmal atrial fibrillation for which she had cardioversion some weeks ago and seem to be an
successful as the patient presently in sinus rhythm she remains on metoprolol 50 mg twice a day and was started on Eliquis at that time she suffers long-term from a prior history of traumatic brain injury with more recently noting diminishing acuity
in her right eye and felt to be in relation to ongoing encephalomalacia from her traumatic brain injury was noted on more recent MRI and end of November of this year.
On her exam pertinent findings showed some bruising to the left eyelid but no significant signs of fluctuance or pain to the orbit and no significant acuity change.� CT of the head was unremarkable with the exception of noting prior encephalomalacia
MRI did show atrophy above and beyond what would be expected in a 73-year-old.
Review of chemistries notes a bicarb of 21/with a gap of 14/CK was not elevated at 92/minor elevation in LFTs possibly alcohol intake related.
She is on multiple medications that could have aggravated her situation as far as her inebriation including lorazepam buspirone Abilify lamotrigine and Cymbalta/she admits to alcohol excess at times in her history but admits this was a isolated
episode in relation to the republican that she had night and Saturday.�
Assessment:
comminuted intertrochanteric left hip fracture
- s/p left hip intramedullary nailing 12/22
- Eliquis resumed per Ortho
- continue pain control
Post-op hypoxic respiratory insufficiency, suspected atelectasis
- add IS
Essential hypertension
- continue losartan and metoprolol
Paroxysmal atrial fibrillation/status post cardioversion and presents in sinus rhythm
- continue metoprolol perioperatively
- Eliquis resumed
Chronic diarrhea
- seen multiple GI consultants without definitive diagnosis other than irritable bowel syndrome
- fecal management system applied initially, now with minimal output, will remove and follow
h/o GIN, s/p stimulator device, oxygen HS PRN
Hyperlipidemia
- statin
GERD
- PPI
hx of TBI
Depression and Anxiety
- continue duloxetine, lamotrigine, Abilify, Buspirone
- hold Ativan on hold
DVT ppx: SCDs
Code: DNR
Anticipated Discharge: 24 - 48 hours
Subjective/Interval History
-
Date of Service: December 25, 2023
no complaints presently, pain managed, agreeable to PO agents now
Objective Data
-
Labs:
Laboratory Results
12/25/23
04:25
WBC 7.9
Hgb 10.7 L
Hct 33.4 L
Plt Count 233
Sodium 132 L
Potassium 4.5
Chloride 100
Carbon Dioxide 28
BUN 40 H
Creatinine 0.9
Glucose 97
Calcium 8.9
Vital Signs:
Vital Signs
Temp Pulse Resp BP Pulse Ox
98.3 F 63 16 102/53 100
12/25/23 11:04 12/25/23 11:04 12/25/23 11:04 12/25/23 11:04 12/25/23 11:12
I&O
12/24/23 12/25/23 12/26/23
06:59 06:59 06:59
Intake Total 1780 / 1780 960 / 960
Output Total 175 / 175
Balance 1780 / 1780 785 / 785
Physical Exam
-
General: No Apparent Distress
HEENT: Normocephalic and Atraumatic
Respiratory: Negative Wheezes
Cardiac: Regular Rhythm and S1/S2
GI: Soft and Nontender
Genito-urinary: No Costovertebral Tender
Musculoskeletal: No Edema
Neuro: AO x 3
Hematologic / Lymphatic: No Lymphadenopathy
Psych: Calm
Data Reviewed
-
Total Time Spent with Patient (in minutes): 42
Labs: Labs Reviewed by me
[2023-12-25] MEDS: ROXICODONE 5 MG PO ×2 (13:50→18:40)
--- NOTE | 2023-12-25 15:00 | CM ---
Reviewed the chart notes and spoke with the patient at the bedside. Reviewed SNF facilities in the area. Referrals sent along with [facility]. CM continues to be available to patient/family and is monitoring medical plan for needs at discharge.
Plan: Discharge to SNF/rehab prior to transitioning back to home. No precert required.
[2023-12-25] MEDS: LIPITOR 10 MG PO (17:15)
[2023-12-25] MEDS: TOPROL XL PO (19:55)
--- NOTE | 2023-12-25 20:03 | W.PN.UPDATE ---
Update Note
Progress Note Update
Patient is hypotensive with bp 86/42, hr 61 symptomatic feels lightheaded. One time order of IVF NSS 500cc was placed.
[2023-12-25] MEDS: NSS 500 IV (20:08)
[2023-12-26] VITALS (8 sets, daily range): BP systolic 98–129; BP diastolic 45–59; PULSE 72–73; O2SAT 94
[2023-12-26] MEDS: TYLENOL PO (01:07)
[2023-12-26] MEDS: ROXICODONE 5 MG PO ×2 (03:09→08:20)
[2023-12-26] MEDS: TYLENOL 650 MG PO ×5 (03:12→20:05)
--- NOTE | 2023-12-26 08:21 | PN.CDI ---
CDI
- -
CDI:
Physician Documentation Request
Admit Date: 12/21/23 18:46
Dear Doctor Fahad,
Clinical Indicators:
Patient admitted with left hip fracture; s/p left hip intramedullary nailing 12/22.
IVF given: Normosol
Sodium levels:
12/22/23 12/25/23
07:06 04:25
Sodium 134 L 132 L
Based on the above, could you clarify in the progress notes, the appropriate diagnosis, if significant, that supports the above abnormalities and additional evaluation, monitoring and/or treatment rendered:
Hyponatremia
Abnormal lab value, clinically insignificant
Other
Use of terms such as suspected, likely, concern for, or probable (associated with a specific diagnosis that is being evaluated, monitored, or treated as if it exists) are acceptable and can be coded in the inpatient setting, when documented at the
time of discharge.
Thank you,
BEVERLY Truong RN
CDI Specialist
available via tiger text
Please use your independent medical judgment in providing your response.
[2023-12-26 08:23] LABS: Hemoglobin 10.5 g/dL (12.0-16.0); Mean Corp Hgb Conc. 33.9 g/dL (33.0-37.0); Mean Corpuscular Hgb 30.1 pg (27.0-31.0); Mean Corpuscular Volume 88.8 fL (81.0-99.0); Mean Platelet Volume 9.5 fL (7.4-10.4); Platelet Count 238 10^3/uL (130-400); Red Blood Cell Count 3.49 10^6/uL (4.20-5.40); Red Cell Dist. Width 13.9 % (11.5-14.5); White Blood Cell Count 7.7 10^3/uL (4.8-10.8)
[2023-12-26] MEDS: ABILIFY 5 MG PO (08:23)
[2023-12-26] MEDS: LAMICTAL 50 MG PO ×2 (08:24→20:05)
[2023-12-26] MEDS: CYMBALTA DELAYED RELEASE 120 MG PO (08:24)
[2023-12-26] MEDS: TOPROL XL 50 MG PO ×2 (08:25→20:05)
[2023-12-26] MEDS: SENOKOT 17.1999999999999993 MG PO ×2 (08:26→20:05)
[2023-12-26] MEDS: VITAMIN B1 100 MG PO ×2 (08:26→20:05)
[2023-12-26] MEDS: DITROPAN 5 MG PO ×2 (08:26→20:05)
[2023-12-26] MEDS: ELIQUIS 5 MG PO ×2 (08:26→20:05)
[2023-12-26] MEDS: THERAGRAN 1 TABLET PO (08:26)
[2023-12-26] MEDS: COLACE 100 MG PO ×2 (08:27→20:05)
[2023-12-26] MEDS: PROTONIX 40 MG PO (08:27)
[2023-12-26] MEDS: BUSPAR 30 MG PO ×2 (08:27→20:05)
--- NOTE | 2023-12-26 08:27 | PN.CDI ---
CDI
- -
CDI:
Physician Documentation Request
Admit Date: 12/21/23 18:46
Dear Doctor Fahad,
Clinical Indicators:
Patient admitted with left hip fracture; s/p left hip intramedullary nailing 12/22.
311 Anesthesia Report, EBL: 50 ML
Hgb/Hct trend:
12/21/23 12/23/23 12/25/23
16:15 16:15 06:00
Hgb 15.7 13.6 10.7 L
Hct 46.4 41.1 33.4 L
Based on the above, could you clarify in the progress notes, the appropriate diagnosis, if significant, that supports the above abnormalities and additional evaluation, monitoring and/or treatment rendered:
Acute blood loss anemia
Drop in hemoglobin only
Other
Use of terms such as suspected, likely, concern for, or probable (associated with a specific diagnosis that is being evaluated, monitored, or treated as if it exists) are acceptable and can be coded in the inpatient setting, when documented at the
time of discharge.
Thank you,
BEVERLY Truong RN
CDI Specialist
available via tiger text
Please use your independent medical judgment in providing your response.
[2023-12-26] MEDS: FOLVITE 1 MG PO (08:28)
[2023-12-26 08:35] LABS: Blood Urea Nitrogen 30 mg/dl (7-17); Calcium 8.7 mg/dl (8.4-10.2); Carbon Dioxide 27 mmol/L (22-30); Chloride 100 mmol/L (98-107); Estimated Creatinine Clearance 81 ml/min; Glucose 96 mg/dl (70-99); Potassium 4.5 mmol/L (3.5-5.1); Sodium 130 mmol/L (135-145); eGFR > 60.00
--- NOTE | 2023-12-26 13:37 | W.PN.HOSP.TC ---
Addendum entered and electronically signed by Matilde Vásquez MD 12/26/23 14:15:
please delete this note in favor of [phone] note
Original Note:
Today's Communication/Plan
-
hold ARB, encourage oral intake/hydration
monitor BP
cut back pain med
Assessment / Plan
Assessment / Plan
Patient on exam still has some alcohol on her breath and still seems a little any inebriated with some slurring of her speech does not recall much events yesterday when she may have been on the floor for some time and now has incurred a
intertrochanteric fracture of her left femur with some comminution.� From pain and inability to weight-bear.� Her medical history more recently exhibits paroxysmal atrial fibrillation for which she had cardioversion some weeks ago and seem to be an
successful as the patient presently in sinus rhythm she remains on metoprolol 50 mg twice a day and was started on Eliquis at that time she suffers long-term from a prior history of traumatic brain injury with more recently noting diminishing acuity
in her right eye and felt to be in relation to ongoing encephalomalacia from her traumatic brain injury was noted on more recent MRI and end of November of this year.
On her exam pertinent findings showed some bruising to the left eyelid but no significant signs of fluctuance or pain to the orbit and no significant acuity change.� CT of the head was unremarkable with the exception of noting prior encephalomalacia
MRI did show atrophy above and beyond what would be expected in a 73-year-old.
Review of chemistries notes a bicarb of 21/with a gap of 14/CK was not elevated at 92/minor elevation in LFTs possibly alcohol intake related.
She is on multiple medications that could have aggravated her situation as far as her inebriation including lorazepam buspirone Abilify lamotrigine and Cymbalta/she admits to alcohol excess at times in her history but admits this was a isolated
episode in relation to the alliance party that she had night and Saturday.�
Assessment:
comminuted intertrochanteric left hip fracture
- s/p left hip intramedullary nailing 12/22
- Eliquis resumed per Ortho
- continue pain control
Post-op hypoxic respiratory insufficiency, suspected atelectasis
- add IS
Essential hypertension
- continue metoprolol
- Losartan held for hypotension
Paroxysmal atrial fibrillation/status post cardioversion and presents in sinus rhythm
- continue metoprolol perioperatively
- Eliquis resumed
Chronic diarrhea
- seen multiple GI consultants without definitive diagnosis other than irritable bowel syndrome
- fecal management system applied initially, now with minimal output, will remove and follow
h/o GIN, s/p stimulator device, oxygen HS PRN
Hyperlipidemia
- statin
GERD
- PPI
hx of TBI
Depression and Anxiety
- continue duloxetine, lamotrigine, Abilify, Buspirone
- hold Ativan on hold
DVT ppx: SCDs
Code: DNR
Anticipated Discharge: 24 - 48 hours
Subjective/Interval History
-
Date of Service: December 26, 2023
hypotensive overnight, BP improved with IVF
ARB held
Objective Data
-
Labs:
Laboratory Results
12/26/23
08:08
WBC 7.7
Hgb 10.5 L
Hct 31.0 L
Plt Count 238
Sodium 130 L
Potassium 4.5
Chloride 100
Carbon Dioxide 27
BUN 30 H
Creatinine 0.7
Glucose 96
Calcium 8.7
Vital Signs:
Vital Signs
Temp Pulse Resp BP Pulse Ox
97.9 F 60 16 103/45 96
12/26/23 11:47 12/26/23 11:47 12/26/23 11:47 12/26/23 11:47 12/26/23 11:47
I&O
12/25/23 12/26/23 12/27/23
06:59 06:59 06:59
Intake Total 960 / 960 1380 / 1380
Output Total 175 / 175 925 / 925
Balance 785 / 785 455 / 455
Physical Exam
-
General: No Apparent Distress
HEENT: Normocephalic and Atraumatic
Respiratory: Negative Wheezes or Rales
Cardiac: Regular Rhythm and S1/S2
GI: Soft and Nontender
Genito-urinary: No Costovertebral Tender
Musculoskeletal: No Edema
Neuro: AO x 3
Psych: Calm
Data Reviewed
-
Total Time Spent with Patient (in minutes): 41
Labs: Labs Reviewed by me
--- NOTE | 2023-12-26 13:50 | W.PN.HOSP.TC ---
Today's Communication/Plan
-
hold ARB
cut back pain meds
monitor BP
SNF planning
Assessment / Plan
Assessment / Plan
Patient on exam still has some alcohol on her breath and still seems a little any inebriated with some slurring of her speech does not recall much events yesterday when she may have been on the floor for some time and now has incurred a
intertrochanteric fracture of her left femur with some comminution.� From pain and inability to weight-bear.� Her medical history more recently exhibits paroxysmal atrial fibrillation for which she had cardioversion some weeks ago and seem to be an
successful as the patient presently in sinus rhythm she remains on metoprolol 50 mg twice a day and was started on Eliquis at that time she suffers long-term from a prior history of traumatic brain injury with more recently noting diminishing acuity
in her right eye and felt to be in relation to ongoing encephalomalacia from her traumatic brain injury was noted on more recent MRI and end of November of this year.
On her exam pertinent findings showed some bruising to the left eyelid but no significant signs of fluctuance or pain to the orbit and no significant acuity change.� CT of the head was unremarkable with the exception of noting prior encephalomalacia
MRI did show atrophy above and beyond what would be expected in a 73-year-old.
Review of chemistries notes a bicarb of 21/with a gap of 14/CK was not elevated at 92/minor elevation in LFTs possibly alcohol intake related.
She is on multiple medications that could have aggravated her situation as far as her inebriation including lorazepam buspirone Abilify lamotrigine and Cymbalta/she admits to alcohol excess at times in her history but admits this was a isolated
episode in relation to the alliance party that she had night and Saturday.�
Assessment:
comminuted intertrochanteric left hip fracture
- s/p left hip intramedullary nailing 12/22
- Eliquis resumed per Ortho
- continue pain control
Acute blood loss anemia
- monitor Hb
Hyponatremia
- add OFR, likely Na is driven by appropriate ADH response to low BP (not SIADH)
Post-op hypoxic respiratory insufficiency, suspected atelectasis
- add IS
Essential hypertension
- continue metoprolol
- Losartan held for hypotension
Paroxysmal atrial fibrillation/status post cardioversion and presents in sinus rhythm
- continue metoprolol perioperatively
- Eliquis resumed
Chronic diarrhea
- seen multiple GI consultants without definitive diagnosis other than irritable bowel syndrome
- fecal management system applied initially, now with minimal output, will remove and follow
h/o GIN, s/p stimulator device, oxygen HS PRN
Hyperlipidemia
- statin
GERD
- PPI
hx of TBI
Depression and Anxiety
- continue duloxetine, lamotrigine, Abilify, Buspirone
- hold Ativan on hold
DVT ppx: SCDs
Code: DNR
Anticipated Discharge: 24 - 48 hours
Subjective/Interval History
-
Date of Service: December 26, 2023
hypotensive overnight, received IVF
ARB held
Objective Data
-
Labs:
Laboratory Results
12/26/23
08:08
WBC 7.7
Hgb 10.5 L
Hct 31.0 L
Plt Count 238
Sodium 130 L
Potassium 4.5
Chloride 100
Carbon Dioxide 27
BUN 30 H
Creatinine 0.7
Glucose 96
Calcium 8.7
Vital Signs:
Vital Signs
Temp Pulse Resp BP Pulse Ox
97.9 F 60 16 103/45 96
12/26/23 11:47 12/26/23 11:47 12/26/23 11:47 12/26/23 11:47 12/26/23 11:47
I&O
12/25/23 12/26/23 12/27/23
06:59 06:59 06:59
Intake Total 960 / 960 1380 / 1380
Output Total 175 / 175 925 / 925
Balance 785 / 785 455 / 455
Physical Exam
-
General: No Apparent Distress
HEENT: Normocephalic and Atraumatic
Respiratory: Negative Wheezes or Rales
Cardiac: Regular Rhythm and S1/S2
GI: Soft
Genito-urinary: No Costovertebral Tender
Neuro: AO x 3
Psych: Calm
Data Reviewed
-
Total Time Spent with Patient (in minutes): 41
Labs: Labs Reviewed by me
--- NOTE | 2023-12-26 14:23 | CM ---
Addendum entered by Rhoda Mujica RN 12/26/23 15:47:
IMM signed and placed in chart.
Addendum entered by Rhoda Mujica RN 12/26/23 15:38:
Confirm with [facility] ) when ready for discharge. No precert required.
Original Note:
Reviewed the chart notes and spoke with the patient at the bedside. [facility] - no beds. [facility] responded willing to accept. Message left with admissions for confirmation of bed availability tomorrow. CM continues to be
available to patient/family and is monitoring medical plan for needs at discharge.
Plan: Discharge to SNF/rehab once bed found, no precert required.
--- NOTE | 2023-12-26 15:30 | PTCARENOTE ---
RN went in to help pt to bedside commode, pt stated she felt lightheaded/like she was going to pass out while on commode, BP was 98/53, HR 58. made aware, no new orders at this time, pt resting comfortably back in bed.
[2023-12-26] MEDS: ROXICODONE 2.5 MG PO ×2 (15:56→20:18)
[2023-12-26] MEDS: NSS 1000 IV (17:16)
[2023-12-26] MEDS: LIPITOR 10 MG PO (18:03)
[2023-12-27] MEDS: TYLENOL 650 MG PO ×5 (00:20→15:26)
[2023-12-27] MEDS: ROXICODONE 2.5 MG PO ×4 (00:24→16:40)
[2023-12-27] MEDS: ATIVAN 2 MG PO (01:43)
[2023-12-27 03:38] VITALS: BP 118/45
[2023-12-27 06:41] LABS: Hemoglobin 9.9 g/dL (12.0-16.0); Mean Corpuscular Hgb 29.9 pg (27.0-31.0); Mean Corpuscular Volume 90.6 fL (81.0-99.0); Mean Platelet Volume 9.9 fL (7.4-10.4); Platelet Count 264 10^3/uL (130-400); Red Blood Cell Count 3.31 10^6/uL (4.20-5.40); Red Cell Dist. Width 13.8 % (11.5-14.5); White Blood Cell Count 6.5 10^3/uL (4.8-10.8)
[2023-12-27 06:57] LABS: Blood Urea Nitrogen 19 mg/dl (7-17); Calcium 8.7 mg/dl (8.4-10.2); Carbon Dioxide 27 mmol/L (22-30); Chloride 99 mmol/L (98-107); Estimated Creatinine Clearance 94 ml/min; Glucose 96 mg/dl (70-99); Potassium 4.3 mmol/L (3.5-5.1); Sodium 132 mmol/L (135-145); eGFR > 60.00
[2023-12-27 07:35] VITALS: BP 120/55
[2023-12-27] MEDS: PROTONIX 40 MG PO (08:29)
[2023-12-27] MEDS: ABILIFY 5 MG PO (08:29)
[2023-12-27] MEDS: LAMICTAL 50 MG PO (08:29)
[2023-12-27] MEDS: SENOKOT 17.1999999999999993 MG PO (08:29)
[2023-12-27] MEDS: VITAMIN B1 100 MG PO (08:29)
[2023-12-27] MEDS: CYMBALTA DELAYED RELEASE 120 MG PO (08:29)
[2023-12-27] MEDS: BUSPAR 30 MG PO (08:30)
[2023-12-27] MEDS: THERAGRAN 1 TABLET PO (08:30)
[2023-12-27] MEDS: ELIQUIS 5 MG PO (08:30)
[2023-12-27] MEDS: COLACE 100 MG PO (08:30)
[2023-12-27] MEDS: DITROPAN 5 MG PO (08:30)
[2023-12-27] MEDS: FOLVITE 1 MG PO (08:30)
[2023-12-27] MEDS: TOPROL XL 50 MG PO (08:32)
[2023-12-27 08:52] LABS: Iron 44 ug/dl (37-170)
[2023-12-27 09:02] LABS: Percent Saturation 14 % (20-50); Total Iron Binding Capacity 313 ug/dl (265-497)
[2023-12-27 09:24] LABS: Ferritin 82.6 ng/ml (11.1-264.0)
[2023-12-27 09:54] LABS: Folate 18.4 ng/ml (2.76-20); Vitamin B12 589 pg/ml (239-931)
[2023-12-27 10:13] VITALS: BP 120/55; PULSE 57; O2SAT 96
[2023-12-27 11:57] VITALS: BP 133/64
--- NOTE | 2023-12-27 12:38 | W.PN.HOSP.TC ---
Today's Communication/Plan
-
dc today to SNF
Assessment / Plan
Assessment / Plan
Assessment:
comminuted intertrochanteric left hip fracture
- s/p left hip intramedullary nailing 12/22
- Eliquis resumed per Ortho
- continue pain control
Acute blood loss anemia
- monitor Hb; partly lower due to dilution from fluids as well
Hyponatremia
- continue OFR, likely Na is driven by appropriate ADH response to low BP (not SIADH)
- repeat BMP next week
Post-op hypoxic respiratory insufficiency, suspected atelectasis
- continue IS
Essential hypertension
- continue metoprolol
- Losartan held for hypotension
Paroxysmal atrial fibrillation/status post cardioversion and presents in sinus rhythm
- continue metoprolol
- Eliquis resumed
Chronic diarrhea
- seen multiple GI consultants without definitive diagnosis other than irritable bowel syndrome
- fecal management system applied initially, now with minimal output, will remove and follow
h/o GIN, s/p stimulator device, oxygen HS PRN
Hyperlipidemia
- statin
GERD
- PPI
hx of TBI
Depression and Anxiety
- continue duloxetine, lamotrigine, Abilify, Buspirone
- hold Ativan on hold
DVT ppx: SCDs
Code: DNR
More than 30 minutes spent in discharge including
Final examination of the patient
Summarizing hospital stay
Instructions for continuing care to all relevant caregivers
Preparation of discharge records, prescriptions, and referral forms
Total time spent (in minutes):41
Anticipated Discharge: Today
Subjective/Interval History
-
Date of Service: December 27, 2023
denies any new complaints
BP stabilizing
Objective Data
-
Labs:
Laboratory Results
12/27/23
05:51
WBC 6.5
Hgb 9.9 L
Hct 30.0 L
Plt Count 264
Sodium 132 L
Potassium 4.3
Chloride 99
Carbon Dioxide 27
BUN 19 H
Creatinine 0.6
Glucose 96
Calcium 8.7
Vital Signs:
Vital Signs
Temp Pulse Resp BP Pulse Ox
98.2 F 57 18 133/64 100
12/27/23 11:57 12/27/23 11:57 12/27/23 11:57 12/27/23 11:57 12/27/23 11:57
I&O
12/26/23 12/27/23 12/28/23
06:59 06:59 06:59
Intake Total 1380 / 1380 3300 / 3300
Output Total 925 / 925
Balance 455 / 455 3300 / 3300
Physical Exam
-
General: No Apparent Distress
HEENT: Normocephalic and Atraumatic
Respiratory: Negative Wheezes or Rales
Cardiac: Regular Rhythm and S1/S2
GI: Soft and Nontender
Neuro: AO x 3
Hematologic / Lymphatic: No Lymphadenopathy
Data Reviewed
-
Total Time Spent with Patient (in minutes): 41
Labs: Labs Reviewed by me
--- NOTE | 2023-12-27 12:44 | W.DS.TRANS ---
DC Summary - Drawing In Hand
-
Discharge Instructions:
Discharge Diagnosis/Procedures comminuted intertrochanteric left hip fracture s
/p left hip intramedullary nailing 12/22
Diet 2 Gram Sodium,Restrict fluids to 64 oz
Activity As tolerated
Additional Activity weightbearing as tolerated to left lower
extremity with assistive device
Driving Restrictions Not until seen by your Dr
Bathing Restrictions OK to Shower
Other Services PT,OT
Instructions:
Stand-Alone Forms:
Changes to Home Medications: Yes
Discharge Medications:
DC Medications w/original date entered in On[employer]
aripiprazole 5 mg tablet 5 mg PO DAILY Neurological Condition 05/07/22
atorvastatin 10 mg tablet 10 mg PO QPM High cholesterol 05/07/22
duloxetine 60 mg capsule,delayed release 120 mg PO DAILY Mental Health 05/07/22
lamotrigine 25 mg tablet (Lamictal) 50 mg PO BID Neurological Condition 05/07/22
oxybutynin chloride 5 mg tablet 5 mg PO BID Urinary issue 05/07/22
ascorbic acid (vitamin C) 500 mg tablet (Vitamin C) 500 mg PO DAILY Supplement 08/31/22
buspirone 30 mg tablet 30 mg PO BID Mental Health 08/31/22
therapeutic multivitamin 1 tab PO DAILY Supplement 08/31/22
vitamin B complex 1 tab PO DAILY Supplement 08/31/22
omeprazole 40 mg capsule,delayed release 40 mg PO DAILY Gastrointestinal Issue 05/04/23
folic acid 1 mg tablet 1 mg PO DAILY #30 tabs 05/06/23
thiamine HCl (vitamin B1) 100 mg tablet 100 mg PO BID #60 tabs 05/06/23
apixaban 5 mg tablet (Eliquis) 5 mg PO BID 12/21/23
metoprolol succinate 25 mg tablet,extended release 24 hr 50 mg PO BID 12/21/23
acetaminophen 325 mg tablet 650 mg PO Q4HWA #100 tabs 12/27/23
lorazepam 2 mg tablet 2 mg PO BIDPRN PRN anxiety #10 tabs 12/27/23
oxycodone 5 mg tablet 2.5 mg PO Q4HPRN PRN severe pain #10 tabs 12/27/23
sennosides 8.6 mg tablet (Senna Laxative) 17.2 mg PO BID #60 tabs 12/27/23
Home Medication Changes
Losartan stopped for post-op hypotension
can resume outpatient after PCP f/u
Pending Results: No
Total time spent discharging patient (in min): 42
--- NOTE | 2023-12-27 12:45 | CM ---
CM following re: discharge planning.
Reviewed pt's chart, met with pt.
According to MD pt is medically stable to be discharged today. Pt is aware, expressed her agreement with discharge. IMM reviewed yesterday.
CM spoke to [facility] admissions liaison Anne and she confirmed that pt is accepted for admission today.
[facility] nursing report: [phone]
Discharge instructions fax: [phone]
D/C plan: [facility] for a short term rehabilitation treatment.
[2023-12-27] MEDS: FLUZONE HIGH-DOSE QUAD 2023-24 0.699999999999999956 ML IM (14:17)
[2023-12-27 15:38] VITALS: BP 118/53
--- NOTE | 2023-12-27 15:40 | PTCARENOTE ---
Called and spoke with Shu at [facility] for report. . process supervisor time [id number].
--- NOTE | 2023-12-27 17:08 | PTCARENOTE ---
Transport here for [facility] picker [facility]. IV pulled, Tele pack removed
== END 2023-12-27 17:20 | DRG 481 ==
LOC: 2 NORTH 18:46
PROVIDERS: Physician Assistant; Registered Nurse; ADMITTING PHYSICIAN Internal Medicine; ATTENDING PHYSICIAN Internal Medicine; EMERGENCY PHYSICIAN Emergency Medicine; FAMILY PHYSICIAN Family Medicine; OTHER PHYSICIAN Orthopaedic Surgery
PROC: 0QS706Z Reposition Left Upper Femur with Intramedullary Internal Fixation Device, Open Approach (ICD-10-PCS; 2023-12-23)
PROC: 3E02340 Introduction of Influenza Vaccine into Muscle, Percutaneous Approach (ICD-10-PCS; 2023-12-27)
DX: S72.142A Displaced intertrochanteric fracture of left femur, initial encounter for closed fracture (principal); D62 Acute posthemorrhagic anemia; J98.11 Atelectasis; E87.1 Hypo-osmolality and hyponatremia; I10 Essential (primary) hypertension; K21.9 Gastro-esophageal reflux disease without esophagitis; I48.0 Paroxysmal atrial fibrillation; R47.81 Slurred speech; G47.33 Obstructive sleep apnea (adult) (pediatric); G43.909 Migraine, unspecified, not intractable, without status migrainosus; R06.89 Other abnormalities of breathing; R09.02 Hypoxemia; I95.81 Postprocedural hypotension; G93.89 Other specified disorders of brain; E78.00 Pure hypercholesterolemia, unspecified; K57.90 Diverticulosis of intestine, part unspecified, without perforation or abscess without bleeding; F32.A Depression, unspecified; F41.9 Anxiety disorder, unspecified; W19.XXXA Unspecified fall, initial encounter; Y93.9 Activity, unspecified; Y92.9 Unspecified place or not applicable; Z79.82 Long term (current) use of aspirin; Z79.01 Long term (current) use of anticoagulants; Z23 Encounter for immunization; Z87.820 Personal history of traumatic brain injury; Z66 Do not resuscitate; Z87.891 Personal history of nicotine dependence; Z96.653 Presence of artificial knee joint, bilateral; Z88.8 Allergy status to other drugs, medicaments and biological substances; Z75.1 Person awaiting admission to adequate facility elsewhere
CPT/HCPCS: 70450; 72170; 73502; 73552; 76000; 80048; 80053; 80306; 80307; 81003; 81015; 82010; 82077; 82550; 82607; 82728; 82746; 82977; 83540; 83550; 83735; 84100; 85025; 85027; 85610; 85730; 86803; 86850; 86900; 86901; 87070; 87324; 87449; 90662; 97110; 97116; 97162; 97167; 97530; 97535; 99285; C1713; C1769; G0008

== ENCOUNTER 2024-03-01 08:57 | Emergency (ER) | payer MEDICARE, SELFPAY ==
--- NOTE | 2024-03-01 09:05 | ED.GENMED ---
History of Present Illness
General
Chief Complaint: Fall
Time Seen by Provider: 03/01/24 09:01
History of Present Illness
History of Present Illness:
HPI: Patient presents after a fall. The patient had $6000 worth of dental implants placed last year. Today, she was using her walker tripped and then her mouth struck the bar of her walker. She denies injury above this level. However, the
patient is on Eliquis. EMS was called and she was brought here for further evaluation. She denies any other injury.
EXAM:
GENERAL: Well appearing in no distress
HEENT: Complete avulsion noted to the central and lateral upper incisors with dental abutments noted, abrasion and very superficial laceration that does not require repair noted to the lips
CARDIOVASCULAR: No murmurs, normal heart rate, regular rhythm, No chest wall tenderness
PULMONARY: No respiratory distress, breath sounds are clear and equal
ABDOMEN: Soft with no peritoneal signs, no tenderness
NEUROLOGIC: Excellent strength all extremities, no coordination deficits
PSYCHIATRIC: Appropriate mental status, normal insight and judgement
EXTREMITIES: Nontender, no edema, slightly decreased active range of motion at the left hip due to recent hip surgery
SKIN: No rash, no lesions
TIME OF INITIAL ENCOUNTER: 9:20 AM
NUMBER AND COMPLEXITY OF PROBLEMS ADDRESSED AT THE ENCOUNTER
� Chronic conditions affecting care: Migraines, history of TBI, A-fib on Eliquis, high blood pressure, hyperlipidemia, anxiety/depression, has dental implants
� Acute Exacerbation and/or Progression of Chronic Illness: This is an acute problem
� Differential Diagnosis includes: Intracranial hemorrhage, dental implant avulsion
AMOUNT AND/OR COMPLEXITY OF DATA TO BE REVIEWED AND ANALYZED
� I performed an independent evaluation of and my interpretation is:
EKG:
CT: CAT scan of the head shows no bleeding�I personally reviewed
X-rays:
Laboratory Studies:
Other:
� Review of other/old records: I reviewed records, the patient was admitted here with a left hip fracture 2 months ago, but she was also hyponatremic at that time
� Clinical information was obtained by an independent historian: I spoke to EMS
� Prescriptions/Medications Considered but not given:
� Further testing considered but not performed: No indication for labs to be tested at this time
RISK OF COMPLICATIONS AND/OR MORBIDITY OR MORTALITY OF PATIENT MANAGEMENT
� Social determinants of health affecting care: Lives at home
� Discussion with other providers: I spoke to EMS; I also spoke to Dr. Jacob, on-call OMFS, who recommends outpatient follow-up
� Escalation of care including admission/observation vs risk of discharge considered: Since patient is on Eliquis, with evidence of craniofacial trauma, CT imaging of the brain was obtained. Dr. Jacob recommended outpatient
follow-up. We did try viscous lidocaine and Tylenol for pain. Clinical condition unchanged on reassessment at 11:05 AM. No clear indication for admission to the hospital. She is to follow-up with her dentist as an outpatient.
Past History
Past History
ED Past Medical History: Arrthythmia (A fib), GERD and HTN
ED Past Surgical History: Cardiac (2 ablations)
Phy Exam
Physical Exam
Physical Exam:
See HPI
Course
Orders/Labs/Results
Orders:
Orders
03/01/24 09:14
CT Head W/o Iv Contrast Urgent
Comment:
Reason For Exam: trauma eliquis
03/01/24 09:37
Viscous Lidocaine 2% [Xylocaine Viscous Cup] 15 ml PO NOW STA
03/01/24 09:38
Acetaminophen [Tylenol] 1,000 mg PO NOW STA
Vital Signs
Initial and Last Documented VS:
Initial Vital Signs
Temp Pulse Resp BP Pulse Ox
98.4 F 93 17 157/81 100
03/01/24 09:07 03/01/24 09:07 03/01/24 09:07 03/01/24 09:07 03/01/24 09:07
Last Documented Vital Signs
Temp Pulse Resp BP Pulse Ox
98.4 F 93 17 157/81 100
03/01/24 09:07 03/01/24 09:07 03/01/24 09:07 03/01/24 09:07 03/01/24 09:07
*Critical Care Note
Total Time (30-74mins, 75-104mins- exclusive of procedures): Not Applicable
ED Attending Note
-
Portions of this chart may have been created with voice recognition software.� Occasional wrong word or��sound alike� substitutions may have occurred due to the inherent limitations of voice recognition software.
Discharge Plan
Departure
Patient Disposition: Home (Routine Discharge)
Date of Disposition: 03/01/24
Time of Disposition: 11:04
Patient with high blood pressure during this ER visit?: Yes
Discharge Problem:
Dental trauma
Instructions: Mouth and dental injuries in adults, BLOOD PRESSURE
Prescriptions:
No Action
atorvastatin 10 mg Tablet
10 mg PO QPM
lamotrigine [Lamictal] 25 mg Tablet
50 mg PO BID
oxybutynin chloride 5 mg Tablet
5 mg PO BID
aripiprazole 5 mg Tablet
5 mg PO DAILY
duloxetine 60 mg Capsule,Delayed Release(Dr/Ec)
120 mg PO DAILY
therapeutic multivitamin Tablet
1 tab PO DAILY
ascorbic acid (vitamin C) [Vitamin C] 500 mg Tablet
500 mg PO DAILY
buspirone 30 mg Tablet
30 mg PO BID
vitamin B complex Tablet
1 tab PO DAILY
omeprazole 40 mg Capsule,Delayed Release(Dr/Ec)
40 mg PO DAILY
thiamine HCl (vitamin B1) 100 mg Tablet
100 mg PO BID Qty: 60 0RF
folic acid 1 mg tablet
1 mg PO DAILY Qty: 30 0RF
metoprolol succinate 25 mg tablet extended release 24 hr
50 mg PO BID
Eliquis 5 mg tablet
5 mg PO BID
acetaminophen 325 mg Tablet
650 mg PO Q4HWA Qty: 100 0RF
sennosides [Senna Laxative] 8.6 mg Tablet
17.2 mg PO BID Qty: 60 0RF
oxycodone 5 mg Tablet
2.5 mg PO Q4HPRN PRN (Reason: severe pain) Qty: 10 0RF
lorazepam 2 mg Tablet
2 mg PO BIDPRN PRN (Reason: anxiety) Qty: 10 0RF
Referrals:
Alka Castro, [Family Provider] -
Activity Restrictions/Additional Instructions:
I did briefly speak to Dr. Jacob, the on-call doctor with oral maxillofacial surgery�she only recommends that you follow-up with your own dental group as an outpatient. The CAT scan of the brain shows no bleeding. Return here if worse.
Discharge Date and Time
Print Language: TAMAZIGHT
[2024-03-01 09:07] VITALS: BP 157/81
[2024-03-01] MEDS: XYLOCAINE VISCOUS CUP 15 ML PO (10:17)
[2024-03-01] MEDS: TYLENOL 1000 MG PO (10:17)
[2024-03-01 12:00] VITALS: BP 133/78
== END 2024-03-01 12:15 | disposition home or self-care (01) ==
LOC: EMR 08:57
PROVIDERS: EMERGENCY PHYSICIAN Emergency Medicine; FAMILY PHYSICIAN Family Medicine
DX: S09.8XXA Other specified injuries of head, initial encounter (principal); W01.198A Fall on same level from slipping, tripping and stumbling with subsequent striking against other object, initial encounter; I10 Essential (primary) hypertension; Z79.01 Long term (current) use of anticoagulants
CPT/HCPCS: 99284; 70450

== ENCOUNTER 2024-03-23 21:28 | Inpatient (IN) | payer MEDICARE, SELFPAY ==
[2024-03-23 17:48] VITALS: BP 94/65; BMI 33.8
[2024-03-23 18:00] VITALS: BP 106/55
[2024-03-23] MEDS: NSS 1000 IV (18:00)
[2024-03-23 18:02] LABS: Hematocrit 26.3 % (37.0-47.0); Hemoglobin 8.1 g/dL (12.0-16.0); Mean Corp Hgb Conc. 30.8 g/dL (33.0-37.0); Mean Corpuscular Hgb 23.5 pg (27.0-31.0); Mean Corpuscular Volume 76.2 fL (81.0-99.0); Platelet Count 435 10^3/uL (130-400); Red Blood Cell Count 3.45 10^6/uL (4.20-5.40); Red Cell Dist. Width 16.2 % (11.5-14.5); White Blood Cell Count 10.4 10^3/uL (4.8-10.8)
--- NOTE | 2024-03-23 18:02 | ED.GENMED ---
History of Present Illness
General
Chief Complaint: Alcohol Problem
Source: ambulance crew
Exam Limitations: clinical condition
Time Seen by Provider: 03/23/24 17:53
Nursing documentation reviewed up to this point in time: agreed with
Travel History
Have you had any contact with someone who has COVID-19?: No
Do you have any symptoms of coronavirus? Fever > 100 degrees, chills, cough, shortness of breath, sore throat, loss of taste or smell, muscle aches, or headache?: No
History of Present Illness
History of Present Illness:
Patient to ED via EMS for altered mental status. According to EMS, patient was on the phone with police for unknown reason and then suddenly stopped talking. When police arrived at house she was lying on the floor surrounded by empty alcohol
bottles. Brought to ED for further evaluation. On arrival she is awake and oriented. Offers no complaints.
Past History
Past History
ED Past Medical History: Arrthythmia (A fib), GERD, HTN, Hypercholesterolemia and Psychiatric
ED Past Surgical History: Cardiac (2 ablations)
Social History
Tobacco: Non-smoker
Alcohol: Other (she denies daily alcohol use but has been to ED in past with intoxication)
Drug: None
Living: alone
Review of Systems
Review of Systems
Allergies reviewed?: Yes
All Other Systems: ROS reviewed and negative except as documented in HPI and ROS
Constitutional: Reports other (intoxicated)
EENT: Reports no symptoms
Respiratory: Reports no symptoms
Cardiac: Reports no symptoms
ABD/GI: Reports no symptoms
: Reports no symptoms
Musculoskeletal: Reports no symptoms
Skin: Reports no symptoms
Neurological: Reports weakness
Psychiatric: Reports no symptoms
Phy Exam
General Physical Exam
General Presentation: no apparent distress
General age: appears stated age
General Skin: warm and dry
General Habitus: normal
General Mental: appears intoxicated
Cardiovascular Exam
Cardiovascular Exam: regular rate/rhythm and no edema
Pulmonary Exam
Pulmonary Exam: lungs clear and no respiratory distress
Gastrointestinal Exam
Gastrointestinal Exam: normal bowel sounds and non tender
Neurological Exam
Neurological Exam: oriented x3 and slurred speech (intoxicated)
Musculoskeletal Exam
Musculoskeletal Exam: full ROM and neuro vasc intact
Skin Exam
Skin Exam: normal color, warm/dry and no rash
Psychiatric Exam
Psychiatric Exam: normal mood/affect
Scores
Withdrawal Assessment of Alcohol
Withdrawal Assessment Completed?: No
Course
Orders/Labs/Results
Orders:
Orders
03/23/24 17:55
Alcohol Urgent
Complete Blood Count/No Diff Urgent
Comprehensive Metabolic Panel Urgent
Ferritin Urgent
Comment: ADD ON
Folate Urgent
Comment: ADD ON
Total Iron Binding Urgent
Comment: ADD ON
Vitamin B12 Urgent
Comment: ADD ON
03/23/24 17:59
0.9% Sodium Chloride 1000 ml [Nss] 1,000 ml IV BOLUS
03/23/24 18:04
CT Head W/o Iv Contrast Urgent
Comment:
Reason For Exam: change in mental status
03/23/24 19:29
Urinalysis Reflex To Culture Urgent
Date Specimen was Collected: 03/23/24
Time Specimen was Collected: 19:27
Urine Microscopic Reflex Cult Urgent
03/23/24 20:41
EKG [Electrocardiogram (*1)] Urgent
Reason for Study: Syncope
03/23/24 20:53
B-Hydroxybutyrate Routine
Lactate Level [Lactic Acid] Routine
03/23/24 20:58
Admit/Transfer Patient As Directed
Co-Sign Provider:
Level of Care: Inpatient admission
Assign to:: Telemetry
Physician / Group: feliz do
Diagnosis: metabolic acidosis 2/2 etoh abuse
Reason for Telemetry: Arrhythmia
Date to Stop Telemetry: 03/26/24
Time to Stop Telemetry: 11:00
Reason for Hospitalization: metabolic acidosis 2/2 etoh abuse
Expected length of stay greater than two midnights?: Yes
ELOS- Estimated Length of Stay in days: 3
I certify the patient meets the requirements for IP care: Yes
03/23/24 21:02
Code Status As Directed
Resuscitation Status: Do not resuscitate
Reached after discussion with pt or family/Healthcare POA: Yes
Based on pt advanced directive or healthcare POA form: Yes
Decision communicated with: per pt who states vlad stewart is her emergency contact
DNR Bracelet Application ONCE
03/23/24 21:03
Add On- LAB Urgent
Tests Added?: b12 folate, iron tibc ferritin
03/23/24 21:04
Pantoprazole [Protonix IV] 40 mg IV NOW STA
03/23/24 21:08
0.9% Sodium Chloride [Nss (Preservative Free)] 10 ml IV NOW STA
03/23/24 22:00
Flush (0.9% Sodium Chloride) [Flush (Nss)] See Dose Instructions IV PER PROTOCOL
03/24/24 08:00
0.9% Sodium Chloride [Nss (Preservative Free)] 10 ml IV DAILY
Apixaban [Eliquis] 5 mg PO BID
Atorvastatin [Lipitor] 10 mg PO DAILY
Multivitamin [Theragran] 1 tablet PO DAILY
Pantoprazole [Protonix IV] 40 mg IV DAILY
03/26/24 11:00
DC Protocol for Telemetry ONCE
Abnormal Lab Results
03/23/24 03/23/24 03/23/24
17:55 19:29 20:53
RBC 3.45 L 10^6/uL
(4.20-5.40)
Hgb 8.1 L g/dL
(12.0-16.0)
Hct 26.3 L %
(37.0-47.0)
MCV 76.2 L fL
(81.0-99.0)
MCH 23.5 L pg
(27.0-31.0)
MCHC 30.8 L g/dL
(33.0-37.0)
RDW 16.2 H %
(11.5-14.5)
Plt Count 435 H 10^3/uL
(130-400)
Chloride 108 H mmol/L
(98-107)
Carbon Dioxide 13 L* mmol/L
(22-30)
BUN 24 H mg/dl
(7-17)
Glucose 100 H mg/dl
(70-99)
Lactic Acid 2.1 H mmol/L
(0.7-2.0)
Total Bilirubin 0.1 L mg/dl
(0.2-1.3)
Total Protein 5.9 L g/dl
(6.3-8.2)
Ur Occult Blood Reflex Trace A
(Negative)
Urine Bacteria (Reflex) Few A
(Negative)
03/23/24 17:55
03/23/24 17:55
Vital Signs
Initial and Last Documented VS:
Initial Vital Signs
Temp Pulse Resp BP Pulse Ox
97.9 F 66 20 94/65 98
03/23/24 17:48 03/23/24 17:48 03/23/24 17:48 03/23/24 17:48 03/23/24 17:48
Last Documented Vital Signs
Temp Pulse Resp BP Pulse Ox
97.9 F 66 20 116/56 99
03/23/24 17:48 03/23/24 17:48 03/23/24 17:48 03/23/24 20:00 03/23/24 20:46
*Critical Care Note
Total Time (30-74mins, 75-104mins- exclusive of procedures): Not Applicable
ED Attending Note
-
Portions of this chart may have been created with voice recognition software.� Occasional wrong word or��sound alike� substitutions may have occurred due to the inherent limitations of voice recognition software.
Discharge Plan
Departure
Patient Disposition: Admit
Date of Disposition: 03/23/24
Time of Disposition: 20:09
Presentation/result/management discussed w/ accepting MD/DO: Hospitalist
Condition: Fair
Covid-19: Not Applicable
Discharge Problem:
Metabolic acidosis, Anemia, Alcohol abuse
Interventions
Interventions:
*Risk Screen - Suicide Last Done: 03/23/24 17:48
*General Assessment Last Done: 03/23/24 17:48
*Neglect/Abuse Screening Last Done: 03/23/24 17:48
*ED COVID-19 Vaccine History Last Done: 03/23/24 17:48
ED- Neurological Assessment Last Done: 03/23/24 17:47
ED-Psychological Assessment Last Done: 03/23/24 17:47
[2024-03-23 18:40] LABS: ALT (SGPT) 13 U/L (0-35); AST (SGOT) 19 U/L (14-36); Albumin 3.6 g/dl (3.5-5.0); Alkaline Phosphatase 89 U/L (38-126); Blood Urea Nitrogen 24 mg/dl (7-17); Calcium 8.4 mg/dl (8.4-10.2); Carbon Dioxide 13 mmol/L (22-30); Chloride 108 mmol/L (98-107); Estimated Creatinine Clearance 71 ml/min; Glucose 100 mg/dl (70-99); Potassium 4.2 mmol/L (3.5-5.1); Sodium 136 mmol/L (135-145); Total Bilirubin 0.1 mg/dl (0.2-1.3); Total Protein 5.9 g/dl (6.3-8.2); eGFR > 60.00
[2024-03-23 19:29] VITALS: BP 112/52
[2024-03-23 19:37] LABS: Urine Albumin Negative (Neg - Trace); Urine Bilirubin Negative (Negative); Urine Character Clear (Clear); Urine Color Straw; Urine Glucose Negative (Negative); Urine Ketone Negative (Negative); Urine Leukocyte Negative (Negative); Urine Nitrite Negative (Negative); Urine Occult Blood Trace (Negative); Urine Specific Gravity 1.005 (<1.030); Urine Urobilinogen Negative (Neg - 1+)
[2024-03-23 19:46] LABS: Alcohol 294 mg/dl
[2024-03-23 19:59] LABS: Urine Mucus Few; Urine Red Blood Cell 0-2 /HPF (0-2)
[2024-03-23 20:00] VITALS: BP 116/56
[2024-03-23 20:00] LABS: Urine Bacteria Few (Negative); Urine White Cell 0-2 /HPF (0-5)
--- NOTE | 2024-03-23 20:26 | HPS.HSE ---
Family Physician
-
Family Physician: NOT KNOW UNKNOWN - PT DOES
Chief Complaint
-
Confusion, falls, intoxication
History of Present Illness
73-year-old female who was brought by EMS for calling the police for unknown reason she will phone then suddenly stop talking. When police arrived at the house she was lying on the floor surrounded by empty alcohol bottles and was brought to the
ER for evaluation. On arrival she was awake and oriented to ER physicians. She states she started drinking a very large bottle of white wine at 3 PM. She does not remember calling the police or how she got here. She states she drinks once a
month. This week she reports she had her aide who comes twice a week take her out to get her wine. Her son usually gets her groceries. She reports also falling 2 weeks ago knocking out her front teeth. She has area attachments still present in
the bone. She has no current visible injuries although complains of a headache. She states she does suffer from migraines but this is not a migraine today. She keeps some repetitive question of having to go to the bathroom. She was reminded 5
times that she has a pure wick present. She is past medical history of A-fib cardiac ablations x 2 GERD, HTN, HLD, alcohol abuse, falls
Medical History
Past Medical History
Past Medical History: Reports Other
Additional Past Medical History:
Alcohol abuse
atrial fib
htn
HLD
depression, anxiety
TBI
migraine
Diverticulosis/diverticulitis
Obstructive sleep apnea
Past Surgical History: Reports Other
Additional Past Surgical History:
History of left hip intramedullary nailing 12/23/2023
cardiac ablation
Appendectomy
Bowel resection
Bilateral knee replacement
Right shoulder surgery
fatty mass removal neck - pt reports did not have thyroid or parathyroid removal
Social History
Tobacco: Former Smoker
Alcohol: Occasional
Drug: None
Personal: Single
Living: Alone
Family History
Family History: Not pertinent
Allergies / Home Medications
Allergies reflects when Allergies were last updated in [facility].
Home Medications with original date entered in [facility]
Allergy/Medication List:
Allergies
Allergy/AdvReac Type Severity Reaction Status Date / Time
etomidate Allergy Severe Unknown Verified 03/23/24 17:52
topiramate [From Topamax] Allergy hallucinati Verified 03/23/24 17:52
ons
Home Medications
acetaminophen 500 mg tablet (Tylenol Extra Strength) 1,000 mg PO .2-3 TIMES A DAY 03/23/24
apixaban 5 mg tablet (Eliquis) 5 mg PO BID 03/23/24
atorvastatin 10 mg tablet 10 mg PO DAILY 03/23/24
cyclobenzaprine 1 tab PO HSPRN PRN restless legs 03/23/24
folic acid 1 mg tablet 3 mg PO DAILY 03/23/24
ibuprofen 200 mg tablet 400 mg PO .2-3 TIMES A DAY 03/23/24
lorazepam 1 mg tablet 1 mg PO TID PRN anxiety 03/23/24
metoprolol succinate 25 mg tablet,extended release 24 hr 25 mg PO BID 03/23/24
therapeutic multivitamin 1 tab PO DAILY 03/23/24
Review of Systems
-
History Source: Patient and Other (Nursing record)
A 12 point ROS was completed and negative except as noted: Yes
Constitutional: Denies Fever or Chills
EENT: Reports Other (Confusion secondary to intoxication, front teeth 7 through 10 missing from fall 2 weeks ago, era attachments present in bone); Denies Sore Throat or Runny Nose
Respiratory: Denies Cough or Trouble Breathing
Cardiac: Denies Chest Pain, Diaphoresis, Palpitations or Syncope
Abdomen/GI: Denies Abdominal Pain, Nausea, Vomiting, Diarrhea or Constipated
: Denies Dysuria, Frequency, Flank Pain, Incontinence or Difficulty Voiding
Musculoskeletal: Denies Joint Pain or Edema
Skin: Denies Itching or Rash
Neurological: Reports Headache; Denies Dizzy
Endocrine: Reports No Symptoms
Hematologic/Lymphatic: Reports No Symptoms
Psych: Reports Calm
Physical Exam
Vital Signs
Vital Signs
Temp Pulse Resp BP Pulse Ox
97.9 F 66 20 116/56 96
03/23/24 17:48 03/23/24 17:48 03/23/24 17:48 03/23/24 20:00 03/23/24 19:47
Physical Exam
General: Conversant; No Pain, Fever or Chills
HEENT: NormoCephalic, Anicteric, Moist mucous membranes, PERRLA, Manlius Conjunctivae, No Ptosis and Other (Confusion secondary to intoxication, front teeth 7 through 10 missing from fall 2 weeks ago, era attachments present in bone)
Respiratory: Clear; No Wheezes, Rales or Rhonchi
Cardiac: S1/S2 and Regular Rhythm
Breast: Deferred by me
GI: Soft, Non Tender, Non Distended, Normal Bowel Sounds and No Hepatosplenomegaly
Rectal: Deferred by Provider
Musculoskeletal: No Clubbing, No Cyanosis and No Edema
Skin: Warm and Dry; No Rash
Neuro: Awake, Alert, Oriented (To name, some of history not present history today) and No Sensory Deficits; No Slurred Speech, Facial Droop, Tremors or Sedated
Psych: Calm
Laboratory Results
-
03/23/24 17:55
03/23/24 17:55
Laboratory Results
Total Bilirubin 0.1 mg/dl (0.2-1.3) L 03/23/24 17:55
AST 19 U/L (14-36) 03/23/24 17:55
ALT 13 U/L (0-35) 03/23/24 17:55
Alkaline Phosphatase 89 U/L (38-126) 03/23/24 17:55
Impression/Plan
-
Impression/plan:
Admit to telemetry
#Metabolic acidosis 2/2 Acute alcohol intoxication/alcohol abuse
EtOH 294
-IV NS 1 L given in ER, continue IV NSS at 100 cc an hour
-MSAs protocol
-IV thiamine, IV folate
-Check lactic acid, beta hydroxy, EKG
#Recent mechanical fall with dental implants missing 7-10
#Anemia microcytic
Hgb 8.1 was 9.9-10.17 December 2023
-Type and screen
-Check Hemoccult
-Check B12, folate, iron panel
#HTN-benign
94/65> 116/56 post 1 L iv NSS
Hold metoprolol 25 mg bid given hypotension
#GIN status post Inspira device
#A-fib
#Hx cardiac ablations
-Patient on Eliquis 5 mg twice daily to take this a.m.
#GERD
-Resume Protonix
#Hx chronic diarrhea
#HLD
-Continue statin
#TBI
#Anxiety/depression
-Patient stopped Abilify, duloxetine, BuSpar times many months
hold prn ativan
#Migraine hx
-Continue Lamictal
#History of left hip intramedullary nailing 12/23/2023
Restless leg syndrome
-Patient reports she takes Flexeril unknown dose at bedtime as needed
DVT prophylaxis
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
DNR per patient
--- NOTE | 2024-03-23 20:48 | W.PN.UPDATE ---
Update Note
Progress Note Update
This note serves as an addendum to the H&P by flower grader MARISA Lotus BREWER
HPI
73M suspect HX ETOH use kj, called 911 and went silent
Police turn up at his house and found out boby on the floor with empty alcohol bottles and was brought to the ER for evaluation. PMHX include AF, cadiac ablation
PMHX
Alcohol abuse
atrial fib
htn
HLD
depression, anxiety
TBI
migraine
Diverticulosis/diverticulitis
Obstructive sleep apnea
PSHX
History of left hip intramedullary nailing 12/23/2023
cardiac ablation
Appendectomy
Bowel resection
Bilateral knee replacement
Right shoulder surgery
SHX
Former smoker
Former ETOH
Reviewed VS: BP 95/65 --> 115/55 HR 66 afebrile
PE
Gen: intoxicate ,interactive , disorganized thought
HEENT: slurred speech, string ETOH smell with speech
Neck: supple
Lungs: CTA
Cor: RRR S1 S2
Abdomen: soft, well healed midline scar s/p BW resection
COMMUNICATION EQUIPMENT MECHANIC: awake , intoxicated , symmetric movement of all extremities
MS: no edema
Psych: alet , cooperative but intoxicated
Data
Hgb 8.1
MCV 76
Plt 435
Cl 108 CO2 13
Hi AG met acidosis @16
Pending HBH
Pending LA
ETOH 294
Pending EKG
HCT: No acute intracranial abnormality.
Last hospitalist admission: 12/20 - 12/27/23
PDX: Comminuted intertrochanteric left hip fracture, status post left hip intramedullary nailing 12/22.
ASSESSMENT & PLAN
Pending Rx reconciliation
AMS with slurred speech likely due to ETOH intoxication
Acute ETOH intoxication
Suspect binge drinking ETOH
Associated fall: NEG HCT
HX AF s/p ablation
HX Fall 2 week ago and loss front teeth implant
HX Comminuted intertrochanteric left hip fracture, status post left hip intramedullary nailing 12/22.
- EKG
- TLM Monitor
- ETOH WD protocol
- fall precaution
Hi AG metabolic acidosis
Suspect ETOH ketosis likely due to starvation
Associated dehydration due to ETOH use
- check BHB, LA
- IV NS
- Trend BMP daily
Interval worsening chronic anemia
Low MCV despite ETOH use disorder
Fe def anemia
- On chr eliquis
- Ferritin, B12, Folate
- stool for HoB
- trend Hgb
Essential HTN
- held losartan
Depression
- cont. Abilify/duloxetine/buspirone, on Lamictal for migraines
Paroxysmal Afib
- EKG pending
- cont. Eliquis : NEG HCT
- Metoprolol continued
HX GIN
s/p stimulator device, oxygen HS PRN
Hyperlipidemia
- cont statin
HX TBI
DVT Px: HEALTH AND SAFETY CONSULTANT Eliquis
Code: full code
IP TLM
[2024-03-23 21:16] LABS: Lactic Acid 2.1 mmol/L (0.7-2.0)
[2024-03-23 21:33] LABS: Total Iron Binding Capacity 412 ug/dl (265-497)
[2024-03-23 22:02] LABS: B-Hydroxybutyrate 0.25 mmol/L (0.02-0.27)
[2024-03-23 22:35] LABS: Ferritin 9.4 ng/ml (11.1-264.0)
[2024-03-23] MEDS: PROTONIX IV 40 MG IV (22:36)
[2024-03-23] MEDS: NSS (PRESERVATIVE FREE) 10 ML IV (22:37)
[2024-03-23 22:41] VITALS: BP 117/53
[2024-03-23 23:07] LABS: Folate > 20.0 ng/ml (2.76-20); Vitamin B12 665 pg/ml (239-931)
[2024-03-23 23:47] VITALS: BP 124/59
[2024-03-23 23:51] VITALS: BMI 32.4
[2024-03-24 00:09] VITALS: BMI 32.4
[2024-03-24 00:22] LABS: GGTP 65 U/L (12-43); Magnesium 2.1 mg/dl (1.6-2.3); Phosphorus 4.2 mg/dl (2.5-4.5)
[2024-03-24 00:24] LABS: INR 1.09; PT 13.9 Sec (11.4-14.6)
[2024-03-24 00:25] LABS: APTT 31.7 Sec (23.4-35.0)
[2024-03-24 00:55] LABS: Urine Albumin Negative (Neg - Trace); Urine Bilirubin Negative (Negative); Urine Character Clear (Clear); Urine Color Yellow; Urine Glucose Negative (Negative); Urine Ketone Negative (Negative); Urine Leukocyte Negative (Negative); Urine Nitrite Negative (Negative); Urine Occult Blood Negative (Negative); Urine Urobilinogen Negative (Neg - 1+)
[2024-03-24 01:58] LABS: Amphetamines Negative (Negative); Barbiturates Negative (Negative); Benzodiazepines Positive (Negative); Buprenorphine Negative (Negative); Cocaine Negative (Negative); Marijuana Negative (Negative); Methadone Negative (Negative); Methamphetamines Negative (Negative); Opiates Negative (Negative); Phencyclidine Negative (Negative); Tricyclic Antidepressants Negative (Negative)
[2024-03-24 02:07] LABS: Fentanyl, Urine Negative (Negative)
[2024-03-24 03:35] VITALS: BP 141/80
[2024-03-24 06:38] LABS: % Basophils 0.7 % (0-2); % Immature Granulocytes 0.7 % (0-0.5); % Lymphocytes 24.7 % (20.5-51.1); % Monocytes 9.9 % (1.7-9.3); Absolute Eosinophils 0.1 10^3/uL (0-0.7); Absolute Lymphocytes 1.4 10^3/uL (1.2-3.4); Absolute Monocytes 0.6 10^3/uL (0.1-0.6); Absolute Neutrophils 3.4 10^3/uL (1.4-6.5); Hematocrit 27.3 % (37.0-47.0); Hemoglobin 8.2 g/dL (12.0-16.0); Mean Corpuscular Hgb 23.3 pg (27.0-31.0); Mean Corpuscular Volume 77.6 fL (81.0-99.0); Mean Platelet Volume 9.4 fL (7.4-10.4); Nucleated Red Blood Cells % 0 %; Platelet Count 428 10^3/uL (130-400); Red Blood Cell Count 3.52 10^6/uL (4.20-5.40); Red Cell Dist. Width 16.1 % (11.5-14.5); White Blood Cell Count 5.5 10^3/uL (4.8-10.8)
[2024-03-24 06:51] LABS: ALT (SGPT) 14 U/L (0-35); AST (SGOT) 19 U/L (14-36); Albumin 3.5 g/dl (3.5-5.0); Alkaline Phosphatase 85 U/L (38-126); Blood Urea Nitrogen 18 mg/dl (7-17); Calcium 8.6 mg/dl (8.4-10.2); Carbon Dioxide 20 mmol/L (22-30); Chloride 113 mmol/L (98-107); Estimated Creatinine Clearance 93 ml/min; Glucose 94 mg/dl (70-99); HDL Cholesterol 40 mg/dl; LDL Cholesterol, Calculated 28 mg/dl; Potassium 4.6 mmol/L (3.5-5.1); Sodium 141 mmol/L (135-145); Total Bilirubin 0.2 mg/dl (0.2-1.3); Total Cholesterol 106 mg/dl (50-199); Total Protein 5.8 g/dl (6.3-8.2); Triglyceride 191 mg/dl (10-149); Very Low Density Lipoprotein 38 mg/dl (0-30); eGFR > 60.00
[2024-03-24 07:35] VITALS: BP 129/66
[2024-03-24] MEDS: THERAGRAN 1 TABLET PO (07:39)
[2024-03-24] MEDS: ELIQUIS 5 MG PO (07:39)
[2024-03-24] MEDS: LIPITOR 10 MG PO (07:39)
[2024-03-24] MEDS: FOLVITE 1 MG PO (07:39)
[2024-03-24] MEDS: THIAMINE INJECTION 200 MG IV ×2 (07:40)
[2024-03-24] MEDS: PROTONIX IV 40 MG IV (07:40)
[2024-03-24] MEDS: NSS (PRESERVATIVE FREE) 10 ML IV (07:40)
[2024-03-24] MEDS: NSS 1000 IV ×2 (07:49)
[2024-03-24 10:10] VITALS: PULSE 94; O2SAT 99
[2024-03-24 11:20] VITALS: BP 150/81
--- NOTE | 2024-03-24 11:21 | W.PN.HOSP.TC ---
Today's Communication/Plan
-
Discharge
Assessment / Plan
Assessment / Plan
Gen-AAOx3, NAD
HEENT-NC, AT, anicteric, clear oral mm
Neck-supple
CV-reg, no M, +S1/S2
Lungs-clear B/L
Abd-soft, NT, ND
Ext-no edema
Musculoskeletal-no cyanosis, clubbing
Skin-warm and dry
Neuro-grossly non-focal
Psych-calm, cooperative
Acute TME -due to acute alcohol intoxication, in the setting of benzodiazepine use. Symptoms resolved. Mental status back to baseline.
Acute alcohol intoxication -resolved.
Alcoholic ketoacidosis -resolved.
History of alcohol use disorder -went on a binge episode yesterday leading to intoxication and altered mental status. Prior to yesterday her last drink was in December. She is a recovering alcoholic. She plans to stop drinking in the future and is
attending AA meetings. Appears to be very motivated. Low risk for alcohol withdrawal syndrome given that she does not drink daily.
Anxiety disorder -on Ativan 1 mg up to 3 times daily. Currently does not have a therapist or psychiatrist, recommend outpatient follow-up with [facility]. Discussed with patient.
Subacute microcytic anemia -unclear etiology. Recommend outpatient follow-up with her primary care doctor, hematology. She does see a litigation manager already.
Atrial fibrillation -unknown type. Continue Eliquis.
Essential hypertension -stable.
Hyperlipidemia
Diverticulosis
DNR
Dispo -stable for discharge today. Recommend outpatient follow-up. Patient requested that I do not call any family members.
32-minute spent in discharge process.
Anticipated Discharge: Today
Subjective/Interval History
-
Date of Service: March 24, 2024
Patient seen and examined. No complaints. Feeling better. Feeling remorseful.
Objective Data
-
Labs:
Laboratory Results
03/23/24 03/24/24
23:58 05:16
WBC 5.5
Hgb 8.2 L
Hct 27.3 L
Plt Count 428 H
PT 13.9
INR 1.09
APTT 31.7
Sodium 141
Potassium 4.6
Chloride 113 H
Carbon Dioxide 20 L
BUN 18 H
Creatinine 0.6
Glucose 94
Calcium 8.6
Total Bilirubin 0.2
AST 19
ALT 14
Alkaline Phosphatase 85
Vital Signs:
Vital Signs
Temp Pulse Resp BP Pulse Ox
98.6 F 110 18 129/66 97
03/24/24 07:35 03/24/24 07:35 03/24/24 07:35 03/24/24 07:35 03/24/24 07:35
I&O
03/23/24 03/24/24 03/25/24
06:59 06:59 06:59
Intake Total 240 / 240
Output Total 850 / 850
Balance -610 / -610
Review of Systems
-
History Source: Patient
All other systems: Reviewed and negative
--- NOTE | 2024-03-24 11:29 | W.DS.TRANS ---
DC Summary - Assistant Merchandise Manager
-
Discharge Instructions:
Discharge Diagnosis/Procedures Alcohol intoxication, alcoholic ketoacidosis,
anemia
Diet Regular
Activity As tolerated
Driving Restrictions As prior to admission
Bathing Restrictions None
Instructions:
Stand-Alone Forms:
Changes to Home Medications: No
Discharge Medications:
DC Medications w/original date entered in [employer]
acetaminophen 500 mg tablet (Tylenol Extra Strength) 1,000 mg PO .2-3 TIMES A DAY Pain 03/23/24
apixaban 5 mg tablet (Eliquis) 5 mg PO BID Blood Clot Prevention/Tx 03/23/24
atorvastatin 10 mg tablet 10 mg PO DAILY High Cholesterol 03/23/24
cyclobenzaprine 1 tab PO HSPRN PRN restless legs 03/23/24
folic acid 1 mg tablet 3 mg PO DAILY Supplement 03/23/24
ibuprofen 200 mg tablet 400 mg PO .2-3 TIMES A DAY Pain 03/23/24
lorazepam 1 mg tablet 1 mg PO TID PRN anxiety 03/23/24
metoprolol succinate 25 mg tablet,extended release 24 hr 25 mg PO BID Heart Failure 03/23/24
therapeutic multivitamin 1 tab PO DAILY Supplement 03/23/24
Home Medication Changes
Pending Results: No
--- NOTE | 2024-03-24 12:41 | CM ---
Met with patient who came into hospital after she un intentionally dialed police who called ambulance to her home. She said a friend stopped by and left her bottle of wine and she drank most of it. She has been to [facility] support in past and will go
back to her meetings.
SHe lives alone in one level home with 1 step in. She has rollator, rolling walker, cane, commode, shower rails and shower seat at home.
She uses the bathroom DME and sometimes rolling walker or cane.
PCP Dr. Alka Cronin
Pharmacy: [facility] no needs.
== END 2024-03-24 12:46 | disposition home or self-care (01) | DRG 917 ==
LOC: 4 WEST ACU 21:28
PROVIDERS: Clinical Nurse Specialist Family Health; Nurse Practitioner; ADMITTING PHYSICIAN Internal Medicine; ATTENDING PHYSICIAN Hospitalist; EMERGENCY PHYSICIAN Emergency Medicine
DX: T51.0X1A Toxic effect of ethanol, accidental (unintentional), initial encounter (principal); G92.8 Other toxic encephalopathy; E87.29 Other acidosis; T42.4X1A Poisoning by benzodiazepines, accidental (unintentional), initial encounter; F10.229 Alcohol dependence with intoxication, unspecified; F41.9 Anxiety disorder, unspecified; D50.9 Iron deficiency anemia, unspecified; K21.9 Gastro-esophageal reflux disease without esophagitis; I10 Essential (primary) hypertension; E78.00 Pure hypercholesterolemia, unspecified; F32.A Depression, unspecified; G43.909 Migraine, unspecified, not intractable, without status migrainosus; I48.0 Paroxysmal atrial fibrillation; G47.33 Obstructive sleep apnea (adult) (pediatric); Y90.8 Blood alcohol level of 240 mg/100 ml or more; I95.9 Hypotension, unspecified; G25.81 Restless legs syndrome; Z66 Do not resuscitate; E86.0 Dehydration; Z87.891 Personal history of nicotine dependence; Z87.820 Personal history of traumatic brain injury; Z79.01 Long term (current) use of anticoagulants
CPT/HCPCS: 70450; 80053; 80061; 80306; 80307; 81003; 81015; 82010; 82077; 82607; 82728; 82746; 82977; 83550; 83605; 83735; 84100; 85025; 85027; 85610; 85730; 87070; 93005; 96360; 97161; 99285

== ENCOUNTER → 2024-06-03 14:51 | Outpatient (REF) | payer MEDICARE, SELFPAY | LOC: PAVMRI 14:51 | PROVIDERS: ATTENDING PHYSICIAN Psychiatry & Neurology Neurology; FAMILY PHYSICIAN Family Medicine | DX: M54.16 Radiculopathy, lumbar region (principal) | CPT/HCPCS: 72148 ==

== ENCOUNTER → 2024-08-25 09:35 | Outpatient (REF) | payer MEDICARE, SELFPAY | LOC: RAD 09:35 | PROVIDERS: ATTENDING PHYSICIAN Internal Medicine Gastroenterology | DX: R05.1 Acute cough (principal) | CPT/HCPCS: 71046; 74019 ==

== ENCOUNTER 2024-09-29 08:00 | Day surgery (SDC) | payer MEDICARE, SELFPAY | END 2024-09-29 09:45 | disposition home or self-care (01) | LOC: GI 08:00 | PROVIDERS: ATTENDING PHYSICIAN Internal Medicine Gastroenterology; FAMILY PHYSICIAN Family Medicine | DX: D50.9 Iron deficiency anemia, unspecified (principal); R12 Heartburn; Z98.84 Bariatric surgery status; K22.89 Other specified disease of esophagus; K29.50 Unspecified chronic gastritis without bleeding | CPT/HCPCS: 43239; 88305; 88342 ==

== ENCOUNTER → 2024-11-06 09:27 | Outpatient (REF) | payer MEDICARE, SELFPAY | LOC: WDC 09:27 | PROVIDERS: ATTENDING PHYSICIAN Student in an Organized Health Care Education/Training Program; FAMILY PHYSICIAN Family Medicine | DX: N63.20 Unspecified lump in the left breast, unspecified quadrant (principal) | CPT/HCPCS: 76642; 77062; 77066 ==

== ENCOUNTER → 2024-11-11 06:46 | Outpatient (REF) | payer MEDICARE, SELFPAY | LOC: PAVMRI 06:46 | PROVIDERS: ATTENDING PHYSICIAN Physician Assistant | DX: M76.899 Other specified enthesopathies of unspecified lower limb, excluding foot (principal) | CPT/HCPCS: 72195 ==

== ENCOUNTER 2025-03-15 17:49 | Emergency (ER) | payer MEDICARE, SELFPAY ==
[2025-03-15 17:50] VITALS: BP 134/64
[2025-03-15 21:45] LABS: Urine Albumin 2+ (Neg - Trace); Urine Bilirubin Negative (Negative); Urine Character Cloudy (Clear); Urine Color Yellow; Urine Glucose Negative (Negative); Urine Ketone Negative (Negative); Urine Leukocyte 3+ (Negative); Urine Nitrite Negative (Negative); Urine Occult Blood 1+ (Negative); Urine Urobilinogen Negative (Neg - 1+)
[2025-03-15 21:49] LABS: % Eosinophils 2.8 % (0-6); % Immature Granulocytes 0.7 % (0-0.5); % Lymphocytes 24.8 % (20.5-51.1); % Monocytes 8.9 % (1.7-9.3); % Neutrophils 61.8 % (42.2-75.2); Absolute Basophils 0.1 10^3/uL (0-0.2); Absolute Eosinophils 0.2 10^3/uL (0-0.7); Absolute Lymphocytes 1.5 10^3/uL (1.2-3.4); Absolute Monocytes 0.5 10^3/uL (0.1-0.6); Absolute Neutrophils 3.8 10^3/uL (1.4-6.5); Hematocrit 37.9 % (37.0-47.0); Hemoglobin 12.3 g/dL (12.0-16.0); Mean Corp Hgb Conc. 32.5 g/dL (33.0-37.0); Mean Corpuscular Hgb 29.9 pg (27.0-31.0); Mean Corpuscular Volume 92.2 fL (81.0-99.0); Mean Platelet Volume 9.7 fL (7.4-10.4); Nucleated Red Blood Cells % 0 %; Platelet Count 272 10^3/uL (130-400); Red Blood Cell Count 4.11 10^6/uL (4.20-5.40); White Blood Cell Count 6.1 10^3/uL (4.8-10.8)
[2025-03-15 21:54] LABS: Amphetamines Negative (Negative); Barbiturates Negative (Negative); Benzodiazepines Positive (Negative); Buprenorphine Negative (Negative); Cocaine Negative (Negative); Marijuana Negative (Negative); Methadone Negative (Negative); Methamphetamines Negative (Negative); Opiates Negative (Negative); Phencyclidine Negative (Negative); Tricyclic Antidepressants Positive (Negative)
[2025-03-15 21:55] LABS: Urine Hyaline Cast >15 /LPF (0-2); Urine Squamous Cell >30 /LPF (Few)
[2025-03-15 21:56] LABS: Urine Bacteria Moderate (Negative); Urine Red Blood Cell 0-2 /HPF (0-2)
[2025-03-15 22:02] LABS: ALT (SGPT) 18 U/L (0-35); AST (SGOT) 21 U/L (14-36); Albumin 4.4 g/dl (3.5-5.0); Alkaline Phosphatase 93 U/L (38-126); Blood Urea Nitrogen 27 mg/dl (7-17); Calcium 9.5 mg/dl (8.4-10.2); Carbon Dioxide 28 mmol/L (22-30); Chloride 106 mmol/L (98-107); Glucose 99 mg/dl (70-99); Potassium 3.8 mmol/L (3.5-5.1); Sodium 141 mmol/L (135-145); Total Bilirubin 0.5 mg/dl (0.2-1.3); Total Protein 6.6 g/dl (6.3-8.2); eGFR 53.06
[2025-03-15 22:03] LABS: Alcohol None Detected
[2025-03-15 22:10] LABS: Fentanyl, Urine Negative (Negative)
--- NOTE | 2025-03-15 22:43 | ED.MUSCINJ ---
HPI-Injury
General
Chief Complaint: Musculo-Skeletal Complaint
Source: patient
Exam Limitations: none
Time Seen by Provider: 03/15/25 21:01
Nursing documentation reviewed up to this point in time: agreed with
History of Present Illness-Injury
Is this injury a work related problem?: No
Is pt an associate of [facility]/[place]?: No
Initial Injury comments:
Patient to ED for eval of chronic pain. Reports she follows with pain management for pain to her low back and left hip. States both hips now hurt along with her left lateral ribs and low back. States pain management does not have anything more to
offer and advised her tocome here. No new injuries, no change in her pain. Denies fever/chills. Brought self to ED for eval.
Past History
Past History
ED Past Medical History: Arrthythmia (A fib), GERD, HTN, Hypercholesterolemia and Psychiatric
ED Past Surgical History: Cardiac (2 ablations)
Social History
Tobacco: Non-smoker
Alcohol: Other (she denies daily alcohol use but has been to ED in past with intoxication)
Drug: None
Living: alone
Review of Systems
Review of Systems
Allergies reviewed?: Yes
All Other Systems: ROS reviewed and negative except as documented in HPI and ROS
Constitutional: Reports no symptoms
EENT: Reports no symptoms
Respiratory: Reports no symptoms
Cardiac: Reports no symptoms
ABD/GI: Reports no symptoms
Musculoskeletal: Reports back pain
Skin: Reports no symptoms
Neurological: Reports no symptoms
Psychiatric: Reports no symptoms
Musculoskeletal Injury Exam
Musculoskeletal Injury Exam
Bilateral Lower Back:
Pain with Movement?: Moderate
Tender to palpation?: Moderate
Soft tissue swelling?: None
External deformity and angulation?: None
Joint effusion?: None
Contusion?: None
Hematoma-local bleeding into tissue?: None
Strain- Sprain- Tear (Connective tissue injury)?: None
Crepitus with movement?: No
Joint instability?: No
Malalignment/deformity?: No
Range of motion: Full
Distal skin color and temperature: normal-warm & good color
Capillary Refill: normal
Normal distal neurovascular exam?: Yes
Phy Exam
General Physical Exam
General Presentation: well appearing and mild distress
General age: appears stated age
General Skin: warm and dry
General Habitus: normal
General Mental: alert
Cardiovascular Exam
Cardiovascular Exam: regular rate/rhythm and no edema
Gastrointestinal Exam
Gastrointestinal Exam: normal bowel sounds and non tender
Musculoskeletal Exam
Musculoskeletal Exam: full ROM and neuro vasc intact
Skin Exam
Skin Exam: normal color, warm/dry and no rash
Psychiatric Exam
Psychiatric Exam: normal mood/affect
Injury Course
Orders/Labs/Results
Orders:
Orders
03/15/25 21:08
Pelvis, 1 or 2 Views CR [CR Pelvis - 1 Or 2 Views ] Urgent
Comment:
Reason For Exam: pain
Ribs, Left 3 View W/PA Chest CR [CR Ribs-left 3 Vw W/pa Chest] Urgent
Comment:
Reason For Exam: pain
03/15/25 21:30
Fentanyl, Urine Urgent
Urinalysis Reflex To Culture Urgent
Date Specimen was Collected: 03/15/25
Time Specimen was Collected: 21:29
Urine Drug Abuse Screen Urgent
Date Specimen was Collected: 03/15/25
Time Specimen was Collected: 21:29
Urine Microscopic Reflex Cult Urgent
Urine Culture Urgent
ANH Source: U
Specimen Description:
Date Specimen was Collected: 03/15/25
Time Specimen was Collected: 21:29
03/15/25 21:35
Add On- LAB Urgent
Tests Added?: urine drug screen
03/15/25 21:41
Alcohol Urgent
Complete Blood Count/With Diff Urgent
Comprehensive Metabolic Panel Urgent
Abnormal Lab Results
03/15/25 03/15/25
21:30 21:41
RBC 4.11 L 10^6/uL
(4.20-5.40)
MCHC 32.5 L g/dL
(33.0-37.0)
Immature Gran % 0.7 H %
(0-0.5)
BUN 27 H mg/dl
(7-17)
Creatinine 1.1 H mg/dL
(0.6-1.0)
Ur Occult Blood Reflex 1+ A
(Negative)
Leukocyte Esterase Rfl 3+ A
(Negative)
Urine WBC (Reflex) 11-15 A /HPF
(0-5)
Urine Bacteria (Reflex) Moderate A
(Negative)
Urine Albumin (Reflex) 2+ A
(Neg - Trace)
Ur Tricyclics Screen Positive H
(Negative)
U Benzodiazepines Scrn Positive H
(Negative)
03/15/25 21:41
03/15/25 21:41
*Critical Care Note
Total Time (30-74mins, 75-104mins- exclusive of procedures): Not Applicable
Update Note
Update Note:
Patient to ED with complaint of pain to left lateral chest and pelvis/bilateral hips. States she had LTHR and her hip has not been right since. She has chronic low back pain and follow with pain management. Follow with pain management for these
complaints but still with pain. Tonights pain is most prominent in her pelvis and left lat chest. No concerning findings on xray. Labs reviewed, stable. Discussed findings with her. SHe is currently on ativan 1mg bid, am not comfortable adding
a narcotic to this. She will continue tylenol and will follow up with PCP.
ED Attending Note
-
Portions of this chart may have been created with voice recognition software.� Occasional wrong word or��sound alike� substitutions may have occurred due to the inherent limitations of voice recognition software.
Discharge Plan
Departure
Patient Disposition: Home (Routine Discharge)
Date of Disposition: 03/15/25
Time of Disposition: 22:43
Patient with high blood pressure during this ER visit?: No
Condition: Good
Covid-19: Not Applicable
Discharge Problem:
Chronic back pain
Instructions: Chronic pain, Back Pain
Prescriptions:
No Action
atorvastatin 10 mg Tablet
10 mg PO DAILY
therapeutic multivitamin Tablet
1 tab PO DAILY
acetaminophen [Tylenol Extra Strength] 500 mg Tablet
1,000 mg PO .2-3 TIMES A DAY
ibuprofen 200 mg Tablet
400 mg PO .2-3 TIMES A DAY
folic acid 1 mg Tablet
3 mg PO DAILY
metoprolol succinate 25 mg tablet extended release 24 hr
25 mg PO BID
lorazepam 1 mg Tablet
1 mg PO TID PRN (Reason: anxiety)
Eliquis 5 mg Tablet
5 mg PO BID
cyclobenzaprine
1 tab PO HSPRN PRN (Reason: restless legs)
Referrals:
UNKNOWN - PT DOES,NOT KNOW [Family Provider]
Activity Restrictions/Additional Instructions:
Follow up with your family doctor tomorrow.
Interventions
Interventions:
*Risk Screen - Suicide Last Done: 03/15/25 17:50
*General Assessment Last Done: 03/15/25 17:50
*Neglect/Abuse Screening Last Done: 03/15/25 17:50
*ED- Fall Risk Assessment Last Done: 03/15/25 22:20
*ED COVID-19 Vaccine History Last Done: 03/15/25 22:20
*Nursing Disposition Last Done: 03/15/25 22:52
ED-Musculoskeletal Assessment Last Done: 03/15/25 22:20
Discharge Date and Time
Discharge Date/Time: 03/15/25 22:54
Print Language: CAMEROONIAN
[2025-03-15 22:52] VITALS: BP 122/45
== END 2025-03-15 22:54 | disposition home or self-care (01) ==
LOC: EMR 17:49
PROVIDERS: Nurse Practitioner; EMERGENCY PHYSICIAN Emergency Medicine
DX: M54.50 Low back pain, unspecified (principal); M25.551 Pain in right hip; M25.552 Pain in left hip; R07.81 Pleurodynia; G89.29 Other chronic pain; I48.91 Unspecified atrial fibrillation; K21.9 Gastro-esophageal reflux disease without esophagitis; E78.00 Pure hypercholesterolemia, unspecified; I10 Essential (primary) hypertension; Z88.8 Allergy status to other drugs, medicaments and biological substances
CPT/HCPCS: 99284; 71101; 72170; 80053; 80306; 80307; 81003; 81015; 82077; 85025; 87077; 87086; 87186

== ENCOUNTER → 2025-04-23 15:33 | Outpatient (REF) | payer MEDICARE, SELFPAY | LOC: CLAB 15:33 | PROVIDERS: ATTENDING PHYSICIAN Surgery | DX: L90.0 Lichen sclerosus et atrophicus (principal) | CPT/HCPCS: 88305 ==

== ENCOUNTER → 2025-06-30 06:41 | Outpatient (REF) | payer MEDICARE, SELFPAY | LOC: MRI 06:41 | PROVIDERS: ATTENDING PHYSICIAN Psychiatry & Neurology Neurology | DX: M54.16 Radiculopathy, lumbar region (principal) | CPT/HCPCS: 72148 ==